=== PATIENT | female | born 1950 | race Caucasian/White ===

== ENCOUNTER 2019-11-08 07:10 | Outpatient (CLI) | payer MEDICARE, SELFPAY ==
[2019-11-08 07:51] LABS: Alanine Aminotransferase 31 U/L (4-35); Alkaline Phosphatase 78 U/L (38-126); Aspartate Amino Transferase 31 U/L (14-36); Bilirubin,Total 0.6 mg/dL (0.2-1.3); Blood Urea Nitrogen 23 mg/dL (7-17); Calcium 9.7 mg/dL (8.4-10.2); Carbon Dioxide 24 mmol/L (22-30); Chloride 101 mmol/L (98-107); Cholesterol 176 mg/dL (0-200); Estimated Glomerular Filt Rate > 60; Glucose 112 mg/dL (65-105); HDL Direct 102 mg/dL; Potassium 4.1 mmol/L (3.4-5.0); Sodium 134 mmol/L (137-145); Triglycerides 65 mg/dL (<150)
[2019-11-08 08:02] LABS: LDL Cholesterol Direct 61 mg/dL
== END 2019-11-08 07:11 | disposition home or self-care (01) ==
PROVIDERS: PCP Emergency Medicine; Visit Provider Emergency Medicine
DX: E78.2 Mixed hyperlipidemia (principal); E11.9 Type 2 diabetes mellitus without complications; E03.9 Hypothyroidism, unspecified
CPT/HCPCS: 36415; 80053; 80061; 83036; 84443

== ENCOUNTER 2020-03-15 07:08 | Outpatient (CLI) | payer MEDICARE, SELFPAY ==
[2020-03-15 08:38] LABS: Hemoglobin A1C 5.6 % (<5.7)
[2020-03-15 08:43] LABS: Alanine Aminotransferase 32 U/L (4-35); Albumin Level 4.1 g/dL (3.5-5.1); Alkaline Phosphatase 93 U/L (38-126); Aspartate Amino Transferase 35 U/L (14-36); Bilirubin,Total 0.6 mg/dL (0.2-1.3); Blood Urea Nitrogen 26 mg/dL (7-17); Calcium 9.8 mg/dL (8.4-10.2); Carbon Dioxide 29 mmol/L (22-30); Chloride 106 mmol/L (98-107); Cholesterol 172 mg/dL (0-200); Estimated Glomerular Filt Rate > 60; Glucose 106 mg/dL (65-105); HDL Direct 89 mg/dL; Potassium 4.4 mmol/L (3.4-5.0); Sodium 137 mmol/L (137-145); Triglycerides 46 mg/dL (<150)
[2020-03-15 08:53] LABS: LDL Cholesterol Direct 61 mg/dL
== END 2020-03-15 07:09 | disposition home or self-care (01) ==
PROVIDERS: PCP Emergency Medicine; Visit Provider Emergency Medicine
DX: E78.5 Hyperlipidemia, unspecified (principal); E11.9 Type 2 diabetes mellitus without complications
CPT/HCPCS: 36415; 80053; 80061; 83036

== ENCOUNTER 2020-08-15 07:13 | Outpatient (CLI) | payer MEDICARE, SELFPAY ==
[2020-08-15 09:06] LABS: Hemoglobin A1C 5.2 % (<5.7)
[2020-08-15 09:07] LABS: Alanine Aminotransferase 25 U/L (4-35); Albumin Level 3.9 g/dL (3.5-5.1); Alkaline Phosphatase 80 U/L (38-126); Anion Gap 7 mmol/L (8-16); Aspartate Amino Transferase 28 U/L (14-36); Bilirubin,Total 0.5 mg/dL (0.2-1.3); Blood Urea Nitrogen 21 mg/dL (7-17); Calcium 9.5 mg/dL (8.4-10.2); Carbon Dioxide 29 mmol/L (22-30); Chloride 103 mmol/L (98-107); Cholesterol 166 mg/dL (0-200); Estimated Glomerular Filt Rate > 60; Glucose 105 mg/dL (65-105); HDL Direct 92 mg/dL; Sodium 139 mmol/L (137-145); Triglycerides 63 mg/dL (<150)
[2020-08-15 09:18] LABS: LDL Cholesterol Direct 49 mg/dL
== END 2020-08-15 07:14 | disposition home or self-care (01) ==
LOC: ANHLAB 07:16
PROVIDERS: PCP Emergency Medicine; Visit Provider Emergency Medicine
DX: E78.5 Hyperlipidemia, unspecified (principal); E11.9 Type 2 diabetes mellitus without complications
CPT/HCPCS: 36415; 80053; 80061; 83036

== ENCOUNTER 2020-12-18 07:27 | Outpatient (CLI) | payer MEDICARE, SELFPAY ==
[2020-12-18 08:03] LABS: Alanine Aminotransferase 33 U/L (4-35); Albumin Level 3.8 g/dL (3.5-5.1); Alkaline Phosphatase 86 U/L (38-126); Anion Gap 5 mmol/L (8-16); Aspartate Amino Transferase 29 U/L (14-36); Bilirubin,Total 0.5 mg/dL (0.2-1.3); Blood Urea Nitrogen 25 mg/dL (7-17); Calcium 9.1 mg/dL (8.4-10.2); Carbon Dioxide 28 mmol/L (22-30); Chloride 107 mmol/L (98-107); Cholesterol 177 mg/dL (0-200); Estimated Glomerular Filt Rate > 60; Glucose 111 mg/dL (65-105); HDL Direct 89 mg/dL; Hemoglobin A1C 5.3 % (<5.7); Potassium 4.4 mmol/L (3.4-5.0); Sodium 140 mmol/L (137-145); Triglycerides 73 mg/dL (<150)
[2020-12-18 08:15] LABS: LDL Cholesterol Direct 55 mg/dL
[2020-12-18 08:34] LABS: Creatinine Urine 78.3 mg/dL
[2020-12-18 08:51] LABS: MALB Creatinine Ratio < 7.7 mg/g (0-30); Microalbumin Urine Random < 6.0 mg/L (0-16.7)
== END 2020-12-18 07:28 | disposition home or self-care (01) ==
PROVIDERS: PCP Emergency Medicine; Visit Provider Emergency Medicine
DX: E11.9 Type 2 diabetes mellitus without complications (principal); I10 Essential (primary) hypertension
CPT/HCPCS: 36415; 80053; 80061; 82043; 83036

== ENCOUNTER 2021-03-27 07:02 | Outpatient (CLI) | payer MEDICARE, SELFPAY ==
[2021-03-27 07:47] LABS: Alanine Aminotransferase 39 U/L (4-35); Albumin Level 4.3 g/dL (3.5-5.1); Alkaline Phosphatase 88 U/L (38-126); Anion Gap 9 mmol/L (8-16); Aspartate Amino Transferase 40 U/L (14-36); Bilirubin,Total 0.6 mg/dL (0.2-1.3); Blood Urea Nitrogen 30 mg/dL (7-17); Calcium 9.8 mg/dL (8.4-10.2); Carbon Dioxide 26 mmol/L (22-30); Chloride 104 mmol/L (98-107); Cholesterol 184 mg/dL (0-200); Estimated Glomerular Filt Rate > 60; Glucose 113 mg/dL (65-105); HDL Direct 100 mg/dL; Potassium 4.3 mmol/L (3.4-5.0); Sodium 139 mmol/L (137-145); Triglycerides 71 mg/dL (<150)
[2021-03-27 07:49] LABS: Hemoglobin A1C 5.7 % (<5.7)
[2021-03-27 07:59] LABS: LDL Cholesterol Direct 55 mg/dL
== END 2021-03-27 07:03 | disposition home or self-care (01) ==
PROVIDERS: PCP Emergency Medicine; Visit Provider Emergency Medicine
DX: E11.9 Type 2 diabetes mellitus without complications (principal); I10 Essential (primary) hypertension
CPT/HCPCS: 36415; 80053; 80061; 83036

== ENCOUNTER → 2021-04-08 17:44 | Outpatient (CLI) | payer MEDICARE, SELFPAY ==
--- NOTE | ~2021-04-08 | MM_ITS ---
EXAMINATION: MM screening jan BI w richard HISTORY: Screening TECHNIQUE: Craniocaudal and mediolateral oblique 3-D tomosynthesis images were obtained and synthetic 2-D images were generated. CAD analysis was submitted and interpreted. COMPARISON: No prior mammogram is available for comparison at this institution. BREAST PARENCHYMAL COMPOSITION: The breasts are almost entirely fatty. FINDINGS: There is no evidence of suspicious mass, calcification, or architectural distortion to sugg est malignancy in either breast. There has been no suspicious interval change. IMPRESSION: 1. No mammographic evidence of malignancy. 2. Recommend routine screening mammography in one year. BI-RADS Category 1: Negative Reviewed, dictated and finalized at location A.
--- NOTE | ~2021-04-08 | DEXA_ITS ---
Bone Density Report Name: Shabana Rendon Age: 70 Sex: Female Ethnicity: White Date of : 1950 Indication: postmenopausal; screening for osteoporosis; Referring Provider: LUIS POLANCO Study: Bone densitometry was performed. Exam Date: April 08, 2021 Accession number: [id number] Bone Density: Region BMD T-score Z-score Classification AP Spine (L1-L4) 1.158 1.0 3.2 Normal Femoral Neck (Left) 0.890 0.4 2.3 Normal Total Hip (Left) 1.121 1.5 3.1 Normal Femoral Neck (Right) 0.812 -0.3 1.6 Normal Total Hip (Right) 1.041 0.8 2.4 Normal Total Hip Mean 1.081 1.2 2.8 Normal World Health Organization criteria for BMD impression classify patients as: Normal (T-score at or above -1.0), Osteopenia (T-score between -1.0 and -2.5), or Osteoporosis (T-score at or below -2.5). 10-year Fracture Risk: FRAX not reported because: All T-scores for Spine Total, Hip Total, Femoral Neck at or above -1.0 Previous Exams: Region Exam Age BMD T-score BMD Change BMD Change Date g/cm2 vs Baseline vs Previous AP Spine(L1-L4) 04/08/2021 70 1.158 1.0 0.068* 0.072* 04/07/2018 67 1.086 0.4 -0.004 -0.004 03/25/2016 65 1.090 0.4 Total Hip(Left) 04/08/2021 70 1.121 1.5 0.078* 0.063* 04/07/2018 67 1.059 1.0 0.015 0.015 03/25/2016 65 1.043 0.8 Total Hip(Right) 04/08/2021 70 1.041 0.8 0.043* 0.055* 04/07/2018 67 0.986 0.4 -0.012 -0.012 03/25/2016 65 0.998 0.5 *Denotes significance at 95% confidence level, LSC for AP Spine = 0.022 g/cm2, LSC for Total Hip = 0.027 g/cm2 Clinical Information Provided by Patient: Has used the following medications: Vitamin D, Calcium Patient maximum height was 66.5 Menopause Age: 49 No regular weight bearing exercise Drinks caffeinated beverages Onset of menses at age 12 Number of children 2 Impression: The patient has normal bone mass. No significant bone loss was observed. Discussion: BONE DENSITY IS ABOVE THE MINIMUM DESIRABLE LEVEL AT ALL SKELETAL SITES TESTED. This patient?s bone mineral density is above the minimum desirable level (T-score -1.0 or better) at all sites measured. The patient should follow a healthful lifestyle (good nutrition with adequate calcium and vitamin D, and appropriate weight-bearing exercise). Follow-Up: Consider repeating this study in 5 years or sooner
== END ==
PROVIDERS: PCP Emergency Medicine; Visit Provider Emergency Medicine
DX: Z12.31 Encounter for screening mammogram for malignant neoplasm of breast (principal); Z78.0 Asymptomatic menopausal state
CPT/HCPCS: 77063; 77067; 77080

== ENCOUNTER 2021-10-17 07:50 | Outpatient (CLI) | payer MEDICARE, SELFPAY ==
[2021-10-17 09:22] LABS: Alanine Aminotransferase 30 U/L (4-35); Albumin Level 4.2 g/dL (3.5-5.1); Alkaline Phosphatase 93 U/L (38-126); Anion Gap 10 mmol/L (8-16); Aspartate Amino Transferase 27 U/L (14-36); Bilirubin,Total 0.6 mg/dL (0.2-1.3); Blood Urea Nitrogen 22 mg/dL (7-17); Calcium 9.8 mg/dL (8.4-10.2); Carbon Dioxide 25 mmol/L (22-30); Chloride 101 mmol/L (98-107); Cholesterol 189 mg/dL (0-200); Estimated Glomerular Filt Rate > 60; Glucose 119 mg/dL (65-110); HDL Direct 104 mg/dL; Potassium 4.2 mmol/L (3.4-5.0); Sodium 136 mmol/L (137-145); Triglycerides 82 mg/dL (<150)
[2021-10-17 09:33] LABS: LDL Cholesterol Direct 57 mg/dL
[2021-10-17 09:37] LABS: Hemoglobin A1C 5.8 % (<5.7)
== END 2021-10-17 07:51 | disposition home or self-care (01) ==
PROVIDERS: PCP Emergency Medicine; Visit Provider Emergency Medicine
DX: E11.9 Type 2 diabetes mellitus without complications (principal); I10 Essential (primary) hypertension
CPT/HCPCS: 36415; 80053; 80061; 83036

== ENCOUNTER 2022-02-18 07:10 | Outpatient (CLI) | payer MEDICARE, SELFPAY ==
[2022-02-18 07:50] LABS: Alanine Aminotransferase 33 U/L (6-35); Albumin Level 4.1 g/dL (3.5-5.1); Alkaline Phosphatase 100 U/L (38-126); Anion Gap 5 mmol/L (8-16); Aspartate Amino Transferase 32 U/L (14-36); Bilirubin,Total 0.4 mg/dL (0.2-1.3); Blood Urea Nitrogen 37 mg/dL (7-17); Calcium 9.7 mg/dL (8.4-10.2); Carbon Dioxide 27 mmol/L (22-30); Chloride 105 mmol/L (98-107); Cholesterol 179 mg/dL (0-200); Estimated Glomerular Filt Rate > 60; Glucose 118 mg/dL (65-110); HDL Direct 86 mg/dL; Potassium 4.4 mmol/L (3.4-5.0); Sodium 137 mmol/L (137-145); Triglycerides 80 mg/dL (<150)
[2022-02-18 07:59] LABS: Hemoglobin A1C 5.3 % (<5.7)
[2022-02-18 08:01] LABS: LDL Cholesterol Direct 53 mg/dL
== END 2022-02-18 07:11 | disposition home or self-care (01) ==
LOC: ANHLAB 07:13
PROVIDERS: PCP Emergency Medicine; Visit Provider Emergency Medicine
DX: E11.9 Type 2 diabetes mellitus without complications (principal); I10 Essential (primary) hypertension; Z13.220 Encounter for screening for lipoid disorders; E03.9 Hypothyroidism, unspecified
CPT/HCPCS: 36415; 80053; 80061; 83036; 84443

== ENCOUNTER 2022-04-09 10:33 | Outpatient (CLI) | payer MEDICARE, SELFPAY | END 2022-04-09 10:34 | disposition home or self-care (01) | PROVIDERS: PCP Emergency Medicine; Visit Provider Emergency Medicine | DX: E03.9 Hypothyroidism, unspecified (principal) | CPT/HCPCS: 36415; 84443 ==

== ENCOUNTER → 2022-05-27 11:04 | Outpatient (CLI) | payer MEDICARE, SELFPAY ==
--- NOTE | ~2022-05-27 | MM_ITS ---
EXAMINATION: MM screening jan BI w richard HISTORY: Screening mammogram TECHNIQUE: Craniocaudal and mediolateral oblique 3-D tomosynthesis images were obtained and synthetic 2-D images were generated. CAD analysis was submitted and interpreted. COMPARISON: 04/08/2021 bilateral screening mammogram examinations BREAST PARENCHYMAL COMPOSITION: The breasts are almost entirely fatty. FINDINGS: Stable benign small intramammary lymph node, upper outer right breast. There is no evidence of suspicious mass, calcification, or architectural distortion to suggest malignancy in either breas t. There has been no suspicious interval change. IMPRESSION: 1. No mammographic evidence of malignancy. 2. Recommend routine screening mammography in one year. BI-RADS Category 2: Benign finding(s). Reviewed, dictated and finalized at location A.
== END ==
PROVIDERS: PCP Emergency Medicine; Visit Provider Emergency Medicine
DX: Z12.31 Encounter for screening mammogram for malignant neoplasm of breast (principal)
CPT/HCPCS: 77063; 77067

== ENCOUNTER 2022-06-22 08:41 | Emergency (ER) | payer MEDICARE, SELFPAY ==
--- NOTE | 2022-06-22 08:43 | ED.SKABFB ---
HPI - Skin/Abscess/Foreign Bdy General Chief complaint: Allergic Reaction Stated complaint: INSECT BITES Time Seen by Provider: 06/22/22 08:41 Source: patient Mode of arrival: ambulatory Limitations: no limitations History of Present Illness HPI narrative: Ms. Rendon is a 72-year-old female patient presenting to the clinic today with complaints of insect bites to the back of her legs. She reports she was hiking with her grandkids yesterday and had possibly been bitten by an insect. She denies any pain to the area however it is very itchy red and blistered. Denies any fever or chills. Related Data Home Medications Medication Instructions Recorded Confirmed calcium carb-vit D3-minerals 600 1 tablet PO DAILY 11/15/19 06/22/22 mg calcium-400 unit tablet flaxseed oil 1,000 mg capsule 1,000 mg PO DAILY 11/15/19 06/22/22 levomefolate 15 mg-algal oil 1 cap PO DAILY 11/15/19 06/22/22 90.314 mg capsule (Deplin (algal oil)) Allergies Allergy/AdvReac Type Severity Reaction Status Date / Time Penicillins Allergy Mild Rash Verified 06/22/22 08:54 levofloxacin Allergy Unknown Unknown Verified 06/22/22 08:54 Sulfa (Sulfonamide Allergy Unknown Hives / Verified 06/22/22 08:54 Antibiotics) Red Face Review of Systems Review of Systems: Pertinent positives per HPI. Patient denies any fever, chills, headache, visual changes, dizziness, cough, runny nose, sore throat, shortness of breath, chest pain, palpitations, nausea, vomiting, diarrhea, constipation, abdominal pain, or any urinary issues. PMFSH Past Medical History Medical History (Updated 06/22/22 @ 09:11 by Chirag Pozo, CELLULAR PHONE REPAIRER) Depression Diabetes mellitus Comments At the time of my signature, I reviewed and agree with the nursing past medical, surgical, social, and family history. There is no relevant family history pertinent to the patient complaint. Exam Narrative: General: Well-developed, well nourished, in no apparent distress Head: Normocephalic, atraumatic. Cardio: Regular rate and rhythm, s1 and s2 normal, no murmur appreciated. Resp: Clear to auscultation bilaterally, no rhonchi, rales, wheezing or rubs. Integumentary: [place], warm, and dry, indurated area the size of a golf ball with large yellowish clear fluid-filled blister to the left lower leg, dime sized yellowish clear fluid-filled blister with indurated size of a half dollar to the right posterior calf. These areas were cleansed with technic care and a 21-gauge needle was used to create small hole for drainage. No blood was noted in fluid Course Course Emergency Course: Portions of this record may have been created with voice recognition software. Level of Care: Express Care Visit Vital Signs Vital signs: Vital Signs Temperature 36.6 C 06/22/22 08:53 Pulse Rate 85 06/22/22 08:53 Respiratory Rate 18 06/22/22 08:53 Blood Pressure 103/72 06/22/22 08:53 Pulse Oximetry 98 06/22/22 08:53 Oxygen Delivery Room Air 06/22/22 08:53 Temperature 36.6 C 06/22/22 08:55 Pulse Rate 85 06/22/22 08:55 Respiratory Rate 18 06/22/22 08:55 Blood Pressure 103/72 06/22/22 08:55 Pulse Oximetry 98 06/22/22 08:55 Oxygen Delivery Room Air 06/22/22 08:55 Vital signs reviewed MDM - Skin/Abscess/Foreign Bdy MDM Narrative Medical decision making narrative: At the time of visit patient is resting comfortably on the exam table. Blistered areas were cleansed with technic care and a 21-gauge needle was used to drain these. No sign of infection. I suspect the patient has insect bite with a localized allergic reaction. Supportive measures were discussed with the patient she voiced understanding of discharge instructions. I will send her in a prescription for some prednisone to help with the inflammation and swelling Differential Diagnosis Differential diagnosis: Likely abscess of skin or subcutaneous tissue, urticaria, herpes zoster, cellulitis, insect bites and
[2022-06-22 08:53] VITALS: BP 103/72; PULSE 85; RESP 18; TEMP 36.6; O2SAT 98
[2022-06-22 08:55] VITALS: BP 103/72; PULSE 85; RESP 18; TEMP 36.6; O2SAT 98
== END 2022-06-22 09:24 | disposition home or self-care (01) ==
PROVIDERS: Emergency Provider Nurse Practitioner Family; PCP Emergency Medicine
DX: S80.862A Insect bite (nonvenomous), left lower leg, initial encounter (principal); S80.861A Insect bite (nonvenomous), right lower leg, initial encounter; W57.XXXA Bitten or stung by nonvenomous insect and other nonvenomous arthropods, initial encounter; E11.9 Type 2 diabetes mellitus without complications
CPT/HCPCS: 99213; G0463

== ENCOUNTER 2022-06-25 07:21 | Outpatient (CLI) | payer MEDICARE, SELFPAY ==
[2022-06-25 08:33] LABS: Alanine Aminotransferase 49 U/L (6-35); Albumin Level 4.2 g/dL (3.5-5.1); Alkaline Phosphatase 74 U/L (38-126); Anion Gap 12 mmol/L (8-16); Aspartate Amino Transferase 30 U/L (14-36); Bilirubin,Total 0.5 mg/dL (0.2-1.3); Blood Urea Nitrogen 34 mg/dL (7-17); Calcium 9.2 mg/dL (8.4-10.2); Carbon Dioxide 25 mmol/L (22-30); Chloride 101 mmol/L (98-107); Cholesterol 170 mg/dL (0-200); Estimated Glomerular Filt Rate > 60; Glucose 106 mg/dL (65-110); HDL Direct 95 mg/dL; Potassium 3.8 mmol/L (3.4-5.0); Sodium 138 mmol/L (137-145); Triglycerides 46 mg/dL (<150)
[2022-06-25 08:44] LABS: LDL Cholesterol Direct 49 mg/dL
[2022-06-25 11:59] LABS: Hemoglobin A1C 5.3 % (<5.7)
== END 2022-06-25 07:22 | disposition home or self-care (01) ==
LOC: ANHLAB 07:25
PROVIDERS: PCP Emergency Medicine; Visit Provider Emergency Medicine
DX: E78.5 Hyperlipidemia, unspecified (principal); I10 Essential (primary) hypertension; E11.9 Type 2 diabetes mellitus without complications; E03.9 Hypothyroidism, unspecified
CPT/HCPCS: 36415; 80053; 80061; 83036; 84443

== ENCOUNTER 2022-11-13 07:53 | Outpatient (CLI) | payer MEDICARE, SELFPAY ==
[2022-11-13 08:27] LABS: Alanine Aminotransferase 33 U/L (6-35); Alkaline Phosphatase 96 U/L (38-126); Anion Gap 6 mmol/L (8-16); Aspartate Amino Transferase 36 U/L (14-36); Bilirubin,Total 0.5 mg/dL (0.2-1.3); Blood Urea Nitrogen 24 mg/dL (7-17); Calcium 8.9 mg/dL (8.4-10.2); Carbon Dioxide 27 mmol/L (22-30); Chloride 107 mmol/L (98-107); Cholesterol 173 mg/dL (0-200); Estimated Glomerular Filt Rate > 60; Glucose 108 mg/dL (65-110); HDL Direct 91 mg/dL; Potassium 4.2 mmol/L (3.4-5.0); Sodium 140 mmol/L (137-145); Triglycerides 69 mg/dL (<150)
[2022-11-13 08:38] LABS: LDL Cholesterol Direct 49 mg/dL
[2022-11-13 08:45] LABS: Hemoglobin A1C 5.2 % (<5.7)
== END 2022-11-13 07:54 | disposition home or self-care (01) ==
PROVIDERS: PCP Emergency Medicine; Visit Provider Emergency Medicine
DX: E11.9 Type 2 diabetes mellitus without complications (principal); E78.5 Hyperlipidemia, unspecified
CPT/HCPCS: 36415; 80053; 80061; 83036; 84443

== ENCOUNTER 2022-12-01 01:07 | Day surgery (SDC) | payer MEDICARE, SELFPAY ==
[2022-11-23 10:02] VITALS: BMI 32.7
--- NOTE | 2022-11-30 15:29 | P.PNAN_ITS ---
Anes - Initial Pre Proc Eval Procedure: Operation Date: 12/01/22 08:00 Proposed Procedures p Screening Colonoscopy - Eddie Gavin MD Date/Time: 11/30/22 15:29 Surgeon: Eddie Gavin MD Pre Op Diagnosis: neoplasm screening Patient Data Age: 72 Gender: F Height: 1.68 m Weight: 92 kg Allergies Allergy/AdvReac Type Severity Reaction Status Date / Time Penicillins Allergy Mild Rash Verified 12/01/22 06:41 levofloxacin Allergy Unknown Unknown Verified 12/01/22 06:41 Sulfa (Sulfonamide Allergy Unknown Hives / Verified 12/01/22 06:41 Antibiotics) Red Face Home Medications Medication Instructions Recorded Confirmed Type calcium carb-vit D3-minerals 600 1 tablet PO DAILY 11/15/19 12/01/22 History mg calcium-400 unit tablet flaxseed oil 1,000 mg capsule 1,000 mg PO DAILY 11/15/19 12/01/22 History levomefolate 15 mg-algal oil 1 cap PO DAILY 11/15/19 12/01/22 History 90.314 mg capsule (Deplin (algal oil)) atorvastatin 10 mg tablet 10 mg PO DAILY #90 tabs 05/15/22 12/01/22 Rx lisinopril 20 See Rx Instructions .Route 05/15/22 12/01/22 Rx mg-hydrochlorothiazide 12.5 mg .COMPLEX #90 tabs tablet levothyroxine 75 mcg tablet See Rx Instructions .Route 11/03/22 12/01/22 Rx .COMPLEX #90 tabs Patient hx anesthesia problems: none Family hx anesthesia problems: none Results Review: All pre-operative results and documents have been reviewed as part of the pre- operative evaluation. [facility] Past Medical History Medical History (Updated 11/30/22 @ 15:30 by Alex Mike DO) Depression Diabetes mellitus Essential (primary) hypertension HLD (hyperlipidemia) Hypothyroidism (acquired) Pulmonary nodules Social History Social History Smoking status: Never smoker Alcohol intake: current Drinks per week: 7 Spiritual care concerns: No Anes - Eval Final PreProcedure Day of Procedure 11/30/22 15:29 Patient weight: obese Heart: regular rate and rhythm Lungs: clear to auscultation Airway: Mallampati scale class II Neurological: alert and oriented Last oral intake: >/= 8 hours ASA classification: III Emergent: no Anesthetic plan: proceed Anesthesia type and monitoring: general GIVS and standard monitoring Results Review: All pre-operative results and documents have been reviewed as part of the pre-operative evaluation. Informed Consent: The patient's anesthetic plan and its attendant risks and benefits were discussed with the patient/family/POA. Questions were solicited and answers provided to the satisfaction of the patient/family/POA.
[2022-12-01 06:43] VITALS: BP 120/73; PULSE 77; RESP 16; TEMP 36.3; O2SAT 98
[2022-12-01] MEDS: LACTATED RINGERS 1,000 ML 150 ML IV CONT (06:46)
--- NOTE | 2022-12-01 07:27 | P.HP_ITS ---
History of Present Illness History of Present Illness Consent: Risks, benefits, and alternatives have been discussed and questions answered. Patient agrees to proceed with procedure. Chief complaint: neoplasm screening Narrative: Shabana Rendon is a 72 year old female Presents for screening colonoscopy. Patient's family history is significant patient's mother had colon cancer. Patient had previous colonoscopy 5 years ago that was unremarkable. Patient states that her current weight appetite bowel movements are normal. Review of Systems Review of Systems: Review of systems noncontributory. [facility] Past Medical History Medical History (Updated 12/01/22 @ 07:29 by Eddie Gavin MD) Depression Diabetes mellitus Essential (primary) hypertension HLD (hyperlipidemia) Hypothyroidism (acquired) Pulmonary nodules Social History Social History Smoking status: Never smoker Alcohol intake: current Drinks per week: 7 Spiritual care concerns: No Meds Home Medications and Allergies Home Medications Medication Instructions Recorded Confirmed Type calcium carb-vit D3-minerals 600 1 tablet PO DAILY 11/15/19 12/01/22 History mg calcium-400 unit tablet flaxseed oil 1,000 mg capsule 1,000 mg PO DAILY 11/15/19 12/01/22 History levomefolate 15 mg-algal oil 1 cap PO DAILY 11/15/19 12/01/22 History 90.314 mg capsule (Deplin (algal oil)) atorvastatin 10 mg tablet 10 mg PO DAILY #90 tabs 05/15/22 12/01/22 Rx lisinopril 20 See Rx Instructions .Route 05/15/22 12/01/22 Rx mg-hydrochlorothiazide 12.5 mg .COMPLEX #90 tabs tablet levothyroxine 75 mcg tablet See Rx Instructions .Route 11/03/22 12/01/22 Rx .COMPLEX #90 tabs Allergies Allergy/AdvReac Type Severity Reaction Status Date / Time Penicillins Allergy Mild Rash Verified 12/01/22 06:41 levofloxacin Allergy Unknown Unknown Verified 12/01/22 06:41 Sulfa (Sulfonamide Allergy Unknown Hives / Verified 12/01/22 06:41 Antibiotics) Red Face Vital Signs Vital Signs - 24 hr 12/01/22 06:43 Temperature 97.3 F L Pulse Rate 77 Respiratory Rate 16 Blood Pressure 120/73 Pulse Oximetry 98 Oxygen Delivery Room Air Exam Narrative: Physical exam reveals patient to be alert. Vital signs stable. HEENT exam is unremarkable. Patient is anicteric. Lungs are clear to auscultation and percussion. Heart is without murmur or extra sounds. Abdomen bowel sounds are present soft nontender with no organomegaly. Digital external rectal exam is normal. Assessment and Plan Assessment and plan (1) Family history of colon cancer in mother: Code(s): Z80.0 - Family history of malignant neoplasm of digestive organs Status: Acute Assessment and Plan: Patient's mother has had colon cancer. Plan for surveillance colonoscopy at 5 year intervals. Further recommendations may be given after endoscopy.
[2022-12-01 08:21] VITALS: BP 94/55; PULSE 66; RESP 21; O2SAT 97
[2022-12-01 08:31] VITALS: BP 110/63; PULSE 55; RESP 19; O2SAT 100
[2022-12-01 08:41] VITALS: BP 115/70; PULSE 56; RESP 16; O2SAT 99
== END 2022-12-01 08:50 | disposition home or self-care (01) ==
PROVIDERS: PCP Emergency Medicine; Visit Provider Internal Medicine Gastroenterology
PROC: 0DJD8ZZ Inspection of Lower Intestinal Tract, Via Natural or Artificial Opening Endoscopic (ICD-10-PCS; CPT 45378; principal; 2022-12-01 08:00)
DX: Z12.11 Encounter for screening for malignant neoplasm of colon (principal); Z80.0 Family history of malignant neoplasm of digestive organs; E11.9 Type 2 diabetes mellitus without complications; I10 Essential (primary) hypertension; E78.5 Hyperlipidemia, unspecified; E03.9 Hypothyroidism, unspecified; F32.A Depression, unspecified; E66.9 Obesity, unspecified; Z68.34 Body mass index [BMI] 34.0-34.9, adult
CPT/HCPCS: G0105; J2704; J7120

== ENCOUNTER 2023-02-19 08:40 | Emergency (ER) | payer MEDICARE, SELFPAY ==
--- NOTE | 2023-02-19 08:42 | ED.URI ---
HPI - URI/Sore Throat General Chief Complaint: Upper Respiratory Infection Stated Complaint: SORE THROAT/CONGESITON Time Seen by Provider: 02/19/23 08:42 Source: patient Mode of arrival: ambulatory Limitations: no limitations History of Present Illness HPI Narrative: Patient is a 72-year-old female who presents with cough since Wednesday evening. Patient states her cough worsened last night and took Tylenol. Patient states she has allergies but does not take daily allergy medicine. Has not tried any other [id number] medicine. Denies fever, chills, ear pain, congestion, sore throat. Related Data Home Medications Medication Instructions Recorded Confirmed calcium carb-vit D3-minerals 600 1 tablet PO DAILY 11/15/19 02/19/23 mg calcium-400 unit tablet flaxseed oil 1,000 mg capsule 1,000 mg PO DAILY 11/15/19 02/19/23 levomefolate 15 mg-algal oil 1 cap PO DAILY 11/15/19 02/19/23 90.314 mg capsule (Deplin (algal oil)) Allergies Allergy/AdvReac Type Severity Reaction Status Date / Time Penicillins Allergy Mild Rash Verified 02/19/23 08:50 levofloxacin Allergy Unknown Unknown Verified 02/19/23 08:50 Sulfa (Sulfonamide Allergy Unknown Hives / Verified 02/19/23 08:50 Antibiotics) Red Face Review of Systems Review of Systems: All systems reviewed & are unremarkable except as noted in HPI and below Constitutional: Constitutional: Denies body ache(s), Denies chills, Denies fatigue, Denies fever(s), Denies headache(s), Denies malaise and Denies weakness Eyes: Eyes: Denies blurry vision, Denies itchy eyes and Denies loss of vision ENT: Denies otalgia, Denies headache(s), Denies nasal congestion, Denies sinus pain and Denies sore throat Cardiovascular: Cardiovascular: Denies chest pain, Denies irregular heart rhythm and Denies dyspnea Respiratory: Respiratory: Reports cough and Denies dyspnea Gastrointestinal: Gastrointestinal: Denies abdominal pain, Denies diarrhea, Denies nausea and Denies vomiting Musculoskeletal: Musculoskeletal: Denies back pain, Denies myalgias and Denies arthralgias Integumentary/Breasts: Skin/Breast: Denies pruritus and Denies rash Neurologic: Denies headache(s), Denies loss of vision and Denies weakness Psychiatric: Psychiatric: Reports no additional psychiatric complaints Endocrine: Endocrine: Denies fatigue Allergic/Immunologic: Allergic/Immunologic: Denies itchy eyes PMFSH Past Medical History Medical History (Updated 02/19/23 @ 09:05 by Dolly Loera APRN) Depression Diabetes mellitus Essential (primary) hypertension HLD (hyperlipidemia) Hypothyroidism (acquired) Pulmonary nodules Social History Social History Smoking status: Never smoker Alcohol intake: current Drinks per week: 7 Spiritual care concerns: No Comments At time of signature, agree with nursing past medical, surgical, social and family history. There is no relevant family history pertinent to the presenting complaint. Exam Const: General: cooperative, healthy appearing, comfortable, no acute distress and well nourished Nutritional Appearance: well nourished Orientation/consciousness: patient oriented x3 Limitations: no limitations HENMT: Head: normal to inspection, normocephalic and atraumatic Ears: hearing grossly normal bilaterally, external ears normal, TM's normal bilaterally, EAC's normal and no periauricular adenopathy Face/Nose/Sinus: Normal external nose present, Normal nasal mucous membranes and turbinates present, No nasal discharge present, normal facial exam, sinuses nontender and face symmetric Face and sinus: normal facial exam, sinuses nontender and face symmetric Mouth: Yes Normal oral and palatal mucosa present, Yes lip normal, Yes tongue normal, Yes Normal salivary glands and ducts present, Yes oropharynx normal and Yes moist mucous membranes Teeth and gingiva: dentition normal Throat: posterior oropharynx normal
[2023-02-19 08:49] VITALS: BP 122/73; PULSE 73; RESP 16; TEMP 36.3; O2SAT 96
[2023-02-19 08:51] VITALS: BP 122/73; PULSE 73; RESP 16; TEMP 36.3; O2SAT 96
== END 2023-02-19 09:09 | disposition home or self-care (01) ==
PROVIDERS: Emergency Provider Nurse Practitioner Family; PCP Emergency Medicine
DX: J06.9 Acute upper respiratory infection, unspecified (principal); E11.9 Type 2 diabetes mellitus without complications; I10 Essential (primary) hypertension; E78.5 Hyperlipidemia, unspecified; E03.9 Hypothyroidism, unspecified
CPT/HCPCS: 99213; G0463

== ENCOUNTER 2023-03-12 07:29 | Outpatient (CLI) | payer MEDICARE, SELFPAY ==
[2023-03-12 09:56] LABS: Alanine Aminotransferase 89 U/L (6-35); Alkaline Phosphatase 150 U/L (38-126); Anion Gap 6 mmol/L (8-16); Aspartate Amino Transferase 50 U/L (14-36); Bilirubin,Total 0.5 mg/dL (0.2-1.3); Blood Urea Nitrogen 31 mg/dL (7-17); Calcium 9.1 mg/dL (8.4-10.2); Carbon Dioxide 28 mmol/L (22-30); Chloride 104 mmol/L (98-107); Cholesterol 171 mg/dL (0-200); Estimated Glomerular Filt Rate > 60; Glucose 111 mg/dL (65-110); HDL Direct 84 mg/dL; Sodium 138 mmol/L (137-145); Triglycerides 76 mg/dL (<150)
[2023-03-12 10:16] LABS: LDL Cholesterol Direct 60 mg/dL
== END 2023-03-12 07:30 | disposition home or self-care (01) ==
LOC: ANHLAB 07:31
PROVIDERS: PCP Emergency Medicine; Visit Provider Emergency Medicine
DX: E11.9 Type 2 diabetes mellitus without complications (principal)
CPT/HCPCS: 36415; 80053; 80061; 84443

== ENCOUNTER 2023-08-06 07:22 | Outpatient (CLI) | payer MEDICARE, SELFPAY ==
[2023-08-06 09:00] LABS: Alanine Aminotransferase 23 U/L (6-35); Albumin Level 4.2 g/dL (3.5-5.1); Alkaline Phosphatase 86 U/L (38-126); Anion Gap 6 mmol/L (8-16); Aspartate Amino Transferase 24 U/L (14-36); Bilirubin,Total 0.6 mg/dL (0.2-1.3); Blood Urea Nitrogen 24 mg/dL (7-17); Calcium 9.4 mg/dL (8.4-10.2); Carbon Dioxide 27 mmol/L (22-30); Chloride 104 mmol/L (98-107); Cholesterol 185 mg/dL (0-200); Estimated Glomerular Filt Rate > 60; Glucose 106 mg/dL (65-110); HDL Direct 104 mg/dL; Potassium 4.1 mmol/L (3.4-5.0); Sodium 137 mmol/L (137-145); Triglycerides 60 mg/dL (<150)
[2023-08-06 09:10] LABS: LDL Cholesterol Direct 61 mg/dL
[2023-08-06 10:12] LABS: Hemoglobin A1C 5.3 % (<5.7)
[2023-08-10 11:02] LABS: Vitamin D 1,25 (OH)2 Total 23 pg/mL (18-72); Vitamin D2 1,25 (OH)2 <8 pg/mL; Vitamin D3 1,25 (OH)2 23 pg/mL
== END 2023-08-06 07:23 | disposition home or self-care (01) ==
PROVIDERS: PCP Emergency Medicine; Visit Provider Emergency Medicine
DX: E11.9 Type 2 diabetes mellitus without complications (principal); E78.5 Hyperlipidemia, unspecified; E55.9 Vitamin D deficiency, unspecified
CPT/HCPCS: 36415; 80053; 80061; 82652; 83036

== ENCOUNTER → 2023-08-11 10:20 | Outpatient (CLI) | payer MEDICARE, SELFPAY ==
--- NOTE | ~2023-08-11 | MM_ITS ---
EXAMINATION: MM screening [facility] BI w richard HISTORY: Screening mammogram TECHNIQUE: Craniocaudal and mediolateral oblique 3-D tomosynthesis images were obtained and synthetic 2-D images were generated. CAD analysis was submitted and interpreted. COMPARISON: 05/27/2022, 04/08/2021 BREAST PARENCHYMAL COMPOSITION: There are scattered areas of fibroglandular density. FINDINGS: No suspicious mass, calcification, or architectural distortion are identified in either tammy ast to suggest malignancy. There has been no suspicious interval change. IMPRESSION: 1. No mammographic evidence of malignancy. 2. Recommend routine screening mammography in one year. BI-RADS Category 1: Negative Reviewed, dictated and finalized at location A.
== END ==
PROVIDERS: PCP Emergency Medicine; Visit Provider Emergency Medicine
DX: Z12.31 Encounter for screening mammogram for malignant neoplasm of breast (principal)
CPT/HCPCS: 77063; 77067

== ENCOUNTER 2023-09-29 17:18 | Outpatient (CLI) | payer MEDICARE, SELFPAY ==
[2023-09-29 18:06] LABS: Appearance Urine Turbid (Clear); Bacteria Urine 4+ /hpf; Bilirubin Urine Negative (Negative); Blood Urine Trace (Negative); Color Urine Yellow (Yellow); Glucose Urine UA Negative (Negative); Ketones Urine Negative (Negative); Leukocyte Esterase Ur 3+ LEU/UL (Negative); Nitrate Urine Positive (Negative); Non Pathogenic Casts 0-2; Protein Urine Negative (Negative); Specific Grav Ur 1.023 (1.001-1.035); Squamous Epithelial Cell Urine Few /hpf (Few); Urobilinogen Urine 0.2 mg/dL (<2.0); WBC Urine >100 /hpf; pH Urine 5.5 (5.0-9.0)
[2023-09-29 18:08] LABS: Add Urine Microscopic? YES
== END 2023-09-29 17:19 | disposition home or self-care (01) ==
PROVIDERS: PCP Emergency Medicine; Visit Provider Emergency Medicine
DX: N39.0 Urinary tract infection, site not specified (principal)
CPT/HCPCS: 81001; 87077; 87086; 87186

== ENCOUNTER 2023-12-29 07:44 | Outpatient (CLI) | payer MEDICARE, SELFPAY ==
[2023-12-29 08:45] LABS: Alanine Aminotransferase 32 U/L (6-35); Albumin Level 3.9 g/dL (3.5-5.1); Alkaline Phosphatase 86 U/L (38-126); Anion Gap 3 mmol/L (8-16); Aspartate Amino Transferase 28 U/L (14-36); Bilirubin,Total 0.7 mg/dL (0.2-1.3); Blood Urea Nitrogen 25 mg/dL (7-17); Calcium 9.6 mg/dL (8.4-10.2); Carbon Dioxide 28 mmol/L (22-30); Chloride 107 mmol/L (98-107); Cholesterol 179 mg/dL (0-200); Estimated Glomerular Filt Rate > 60; Glucose 106 mg/dL (65-110); HDL Direct 96 mg/dL; Potassium 4.1 mmol/L (3.4-5.0); Sodium 138 mmol/L (137-145); Triglycerides 85 mg/dL (<150)
[2023-12-29 08:55] LABS: LDL Cholesterol Direct 68 mg/dL
[2023-12-29 09:04] LABS: Vitamin D 25 Hydroxy 56.5 ng/mL
== END 2023-12-29 07:45 | disposition home or self-care (01) ==
LOC: ANHLAB 07:46
PROVIDERS: PCP Emergency Medicine; Visit Provider Emergency Medicine
DX: E55.9 Vitamin D deficiency, unspecified (principal); I10 Essential (primary) hypertension
CPT/HCPCS: 36415; 80053; 80061; 82306; 84443

== ENCOUNTER 2024-02-10 13:13 | Outpatient (CLI) | payer MEDICARE, SELFPAY ==
--- NOTE | ~2024-02-10 | DEXA_ITS ---
Bone Density Report Name: CHAVA CRAIG Age: 73 Sex: Female Ethnicity: White Date of : 1950 Indication: postmenopausal; screening for osteoporosis; Referring Provider: LUIS POLANCO Study: Bone densitometry was performed. Exam Date: February 10, 2024 Accession number: [id number] Bone Density: Region BMD T-score Z-score Classification AP Spine (L1-L4) 1.202 1.4 3.8 Normal Femoral Neck (Left) 0.875 0.2 2.3 Normal Total Hip (Left) 1.115 1.4 3.2 Normal Femoral Neck (Right) 0.781 -0.6 1.5 Normal Total Hip (Right) 1.043 0.8 2.6 Normal Total Hip Mean 1.079 1.1 2.9 Normal World Health Organization criteria for BMD impression classify patients as: Normal (T-score at or above -1.0), Osteopenia (T-score between -1.0 and -2.5), or Osteoporosis (T-score at or below -2.5). 10-year Fracture Risk: FRAX not reported because: All T-scores for Spine Total, Hip Total, Femoral Neck at or above -1.0 Previous Exams: Region Exam Age BMD T-score BMD Change BMD Change Date g/cm2 vs Baseline vs Previous AP Spine(L1-L4) 02/10/2024 73 1.202 1.4 0.112 0.044 04/08/2021 70 1.158 1.0 0.068* 0.072* 04/07/2018 67 1.086 0.4 -0.004 -0.004 03/25/2016 65 1.090 0.4 Total Hip(Left) 02/10/2024 73 1.115 1.4 0.072 -0.006 04/08/2021 70 1.121 1.5 0.078* 0.063* 04/07/2018 67 1.059 1.0 0.015 0.015 03/25/2016 65 1.043 0.8 Total Hip(Right) 02/10/2024 73 1.043 0.8 0.045 0.002 04/08/2021 70 1.041 0.8 0.043* 0.055* 04/07/2018 67 0.986 0.4 -0.012 -0.012 03/25/2016 65 0.998 0.5 *Denotes significance at 95% confidence level, LSC for AP Spine = 0.022 g/cm2, LSC for Total Hip = 0.027 g/cm2 Clinical Information Provided by Patient: Has used the following medications: Calcium Patient maximum height was 66 Menopause Age: 49 No regular weight bearing exercise Drinks caffeinated beverages Onset of menses at age 12 Number of children 2 Impression: The patient has normal bone mass. No significant bone loss was observed. Discussion: BONE DENSITY IS ABOVE THE MINIMUM DESIRABLE LEVEL AT ALL SKELETAL SITES TESTED. This patient?s bone mineral density is above the minimum desirable level (T-score -1.0 or better) at all sites measured. The patient should follow a
== END 2024-02-10 13:14 ==
LOC: MICIMG 13:14
PROVIDERS: PCP Emergency Medicine; Visit Provider Emergency Medicine
DX: Z78.0 Asymptomatic menopausal state (principal)
CPT/HCPCS: 77080

== ENCOUNTER 2024-05-23 09:15 | Outpatient (CLI) | payer MEDICARE, SELFPAY ==
[2024-05-23 09:49] LABS: Alanine Aminotransferase 35 U/L (6-35); Albumin Level 4.1 g/dL (3.5-5.1); Alkaline Phosphatase 99 U/L (38-126); Anion Gap 9 mmol/L (4-12); Aspartate Amino Transferase 29 U/L (14-36); Bilirubin,Total 0.7 mg/dL (0.2-1.3); Blood Urea Nitrogen 31 mg/dL (7-17); Calcium 9.7 mg/dL (8.4-10.2); Carbon Dioxide 25 mmol/L (22-30); Chloride 104 mmol/L (98-107); Cholesterol 174 mg/dL (0-200); Estimated Glomerular Filt Rate > 60; Glucose 114 mg/dL (65-110); HDL Direct 98 mg/dL; Potassium 4.3 mmol/L (3.4-5.0); Sodium 138 mmol/L (137-145); Triglycerides 72 mg/dL (<150)
[2024-05-23 10:00] LABS: LDL Cholesterol Direct 58 mg/dL
[2024-05-23 10:36] LABS: Vitamin D 25 Hydroxy 39.3 ng/mL
[2024-05-23 10:48] LABS: Hemoglobin A1C 5.7 % (<5.7)
== END 2024-05-23 09:16 | disposition home or self-care (01) ==
LOC: ANHLAB 09:20
PROVIDERS: PCP Emergency Medicine; Visit Provider Emergency Medicine
DX: E78.5 Hyperlipidemia, unspecified (principal); E03.9 Hypothyroidism, unspecified; E11.9 Type 2 diabetes mellitus without complications; E55.9 Vitamin D deficiency, unspecified
CPT/HCPCS: 36415; 80053; 80061; 82306; 83036; 84443

== ENCOUNTER 2024-11-24 08:18 | Outpatient (CLI) | payer MEDICARE, SELFPAY ==
--- OUTSIDE RECORDS SUMMARY | 2024-11-24 08:22 | XMS_ITS | Patient Health Summary ---
Author Organization [facility] Address [address] [place] [address] Care Team Providers Care Health Information Administrator Name Role Phone Agustin Montgomery MD Primary Care Provider [phone] Note from [facility],non-owned Affiliates and Associated Physician Practices is amultiple site organization consisting of ambulatory clinics and hospital sitesin [place], [place], [place]. This disclosure is being madepursuant to the Care Everywhere program and may not contain all information available regarding this patient. Last updated 18.[facility] Allergies * Penicillins * Sulfa Drugs Immunizations * INFLUENZA VACCINE, HIGH-DOSE, QUADR. (FLUZONE HIGH-DOSE QUADRIVALENT; 65Y+), 0.7 ML (HD-IIV4)(Given 08/24/2017) Social History Tobacco Use Types Packs/Day Years Used Date Smoking Tobacco: Never Assessed Sex and Gender Information Value Date Recorded Sex Assigned at Not on file Gender Identity Not on file Sexual Orientation Not on file Care Teams Health Information Administrator Relationship Specialty Start Date End Date Agustin Montgomery MD [address] [place] [id number] PCP - General Internal Medicine 08/24/17
--- OUTSIDE RECORDS SUMMARY | 2024-11-24 08:22 | XMS_ITS | Referral Summary ---
Author Organization [facility] Address [address] [place] [address] Care Team Providers Care Global Sales Director Name Role Phone Agustin Montgomery MD Primary Care Provider [phone] Source Comments [facility],non-owned Affiliates and Associated Physician Practices is amultiple site organization consisting of ambulatory clinics and hospital sitesin [place], [place], [place] and [place]. This disclosure is being madepursuant to the Care Everywhere program and may not contain all information available regarding this patient. Last updated 18.[facility] [employer] Allergies Active Allergy Reactions Criticality Noted Date Comments Penicillins 08/24/2017 Sulfa Drugs 08/24/2017 Immunizations Name Administration Dates Next Due INFLUENZA VACCINE, HIGH-DOSE , QUADR. (FLUZONE HIGH-DOSE QUADRIVALENT; 65Y+), 0.7 ML (HD-IIV4) 08/24/2017 Social History Tobacco Use Types Packs/Day Years Used Date Smoking Tobacco: Never Assessed Sex and Gender Information Value Date Recorded Sex Assigned at Not on file Gender Identity Not on file Sexual Orientation Not on file Plan of Treatment Not on file Care Teams Global Sales Director Relationship Specialty Start Date End Date Agustin Montgomery MD [facility] [facility] [address] [place] [address] PCP - General Internal Medicine 08/24/17
--- OUTSIDE RECORDS SUMMARY | 2024-11-24 08:22 | XMS_ITS | Clinical Summary ---
Author Organization [facility] Address [address] [place] [address] Care Team Providers Care Rehabilitation Therapist Name Role Phone None, Provider Primary Care Provider Unavaila ble Social History Tobacco Use Types Packs/Day Years Used Date Smoking Tobacco: Never Assessed Comments Unknown Sex and Gender Information Value Date Recorded Sex Assigned at Not on file Legal Sex Female 8:51 PM CDT Gender Identity Not on file Sexual Orientation Not on file Plan of Treatment Health Maintenance Due Date Last Done Comments Colorectal Cancer Screening Colonoscopy (10 Years) 1949 Hepatitis C 1967 DTaP, Tdap and Td Vaccines ( 1 - Tdap) 1968 Zoster Vaccines (1 of 2) 1999 Annual Medicare Wellness Visit 2014 Dexa Scan (General) 2014 Pneumococcal Vaccine: 65+ Ye ars (1 of 1 - PCV) 2014 RSV Immunization or 60+ Years (1 - 1-dose 75+ series) 2024 COVID-19 Vaccine ( - 2023-2 5 season) 2024 Influenza Adult (#1) 2024 08/24/2017 Meningococcal B Vaccine Aged Out No l onger eligible based on patient's age to complete this topic Meningococcal Vaccine Aged Out No didier caryn eligible based on patient's age to complete this topic RSV Immunizations Under 20 Months Aged Out No longer eligible based on patient's age to complete this topic Insurance MEDICARE [facility] Care Teams Rehabilitation Therapist Relationship Specialty Start Date End Date None, Provider, PCP - General 11/08/18
--- OUTSIDE RECORDS SUMMARY | 2024-11-24 08:22 | XMS_ITS | Clinical Summary ---
Author Organization [facility] Address [address] Attn: Epic Prelude ADT [place] [address] Care Team Providers Care Kitchen And Counter Worker Name Role Phone Unavailable Primary Care Provider Unavailabl e Allergies Active Allergy Reactions Criticality Noted Date Comments Sulfamethoxazole-Trimethoprim Hives High 2023 Medications bacitracin zinc 500 unit/gram Ointment Apply to the affected area three times daily 14 Gram 2 Active peg 3350-electroly velvet (GaviLyte-G) 236-22.74-6.74 -5.86 gram Recon Soln TAKE DIRECTED BY PHYSICIAN. 4000 mL 11/21/2022 12:40 PM INTERNAL CONTROLS CONSULTANT 3 Active inhalational spacing device ([facility]) Spacer use as directed with inhaler 1 Each 02/19/2023 10:45 AM CDT 3 Active albuterol sulfate HFA 90 mcg/actuation aerosol inhaler 2 puff inhaled four times daily as needed for shortness of breath or wheezing 6.7 Gram 02/19/2023 10:45 AM CDT 3 Active predniSONE (DELTASONE) 20 mg tablet Take two tablets (40 mg) orally daily for 5 days 10 Tablet 02/19/2023 10:45 AM CDT 3 Active azithromycin (ZITHROMAX) 250 mg tablet Take 2 tablets by mouth on day 1, then take 1 tablet by mouth daily for 4 days. 6 Tablet 03/12/2023 1:27 PM CDT 3 Active fluticasone propionate (FLONASE) 50 mcg/spray [place], Suspension nasal inhaler Administer 2 sprays in each nostril once daily. 16 Gram 3 07/14/2023 9:27 AM CDT 3 Active methylPREDNISo lone (MEDROL DOSPACK) 4 mg Tablets, Dose Pack TAKE DIRECTED ON PACKAGE. 21 Each 03/17/2023 6:43 PM CDT 3 Active azithromycin (ZITHROMAX) 250 mg tablet TAKE 2 TABLETS BY MOUTH A SINGLE DOSE ON DAY 1, THEN TAKE 1 TABLET BY MOUTH ONCE DAILY ON DAYS 2 THRU 5. 6 Tablet 11/30/2023 2:03 PM INTERNAL CONTROLS CONSULTANT 4 Active methylPREDNISo lone (MEDROL DOSPACK) 4 mg Tablets, Dose Pack TAKE DIRECTED ON PACKAGE. 21 Each 11/30/2023 2:03 PM INTERNAL CONTROLS CONSULTANT 4 Active atorvastatin (LIPITOR) 10 mg tablet Take 1 Tablet (10 mg) by mouth daily. 90 Tablet 2 11/01/2024 2:03 PM INTERNAL CONTROLS CONSULTANT 4 Active levothyroxine 75 mcg tablet Take 1 Tablet (75 mcg) by mouth daily. 90 Tablet 2 11/08/2024 11:48 AM INTERNAL CONTROLS CONSULTANT 4 Active bacitracin zinc 500 unit/gram Ointment Apply topically three times daily. 14 Gram 2 4 Active lisinopril-hyd roCHLOROthiazi de (ZESTORETIC) 20-12.5 mg tablet TAKE ONE TABLET BY MOUTH ONCE DAILY 90 Tablet 2 11/08/2024 11:48 AM INTERNAL CONTROLS CONSULTANT 5 Active lisinopril-hyd roCHLOROthiazi de (ZESTORETIC) 20-12.5 mg tablet TAKE ONE TABLET BY MOUTH ONCE DAILY 90 Tablet 2 08/09/2024 11:31 AM CDT 4 11/07/19 25 Discontinu ed(Reorder ) Immunizations Immunization Administration Dates Next Due (ADACEL/BOOSTRIX)(10 YR UP) TDAP VACCINE, 0.5ML, IM 07/01/2022 (AREXVY)(60 YR UP) RSV, UMER MBINANT, PROTEIN SUBUNIT RSVPREF, ADJUVANT RECONSTITUTED, 0.5 ML, PF 10/28/2023 INFLUENZA VACCINE HIGH DOSE QUADRIVALENT 65 YR U P PF IM 06/21/2023 INFLUENZA VACCINE HIGH DOSE TRIVALENT SPLIT VIRUS, (65 YR UP), 0.5ML (PF), IM 08/01/2024 Social History Tobacco Use Types Packs/Day Years Used Date Smoking Tobacco: Never Assessed Comments Unknown Sex and Gender Information Value Date Recorded Sex Assigned at Not on file Legal Sex Female 3:27 PM CDT Gender Identity Not on file Sexual Orientation Not on file Plan of Treatment Health Maintenance Due Date Last Done Comments COLORECTAL SCREENING 1994 Colorectal Cancer Screening 1994 FIT-DNA Q 3 years 1994 FIT/FOBT Q 1 year 1994 Flex Sig/CT Colonography Q 5 years 1994 PNEUMOCOCCAL VACCINE 65+ YEA RS (1 of 1 - PCV) 1999 ZOSTER VACCINE (1 of 2) 1999 OSTEOPOROSIS SCREENING 2014 DTAP/TDAP/TD VACCINES (2 - Td or Tdap) 07/01/2032 RSV VACCINE (60+ or ) Completed 10/28/2023 INFLUENZA VACCINE Completed 08/01/2024, 06/21/2023 Insurance RX [facility] DATA Medicare Part B RX [employer] (INTERNAL) [facility] RX [employer] RX Member Subscriber Plan / Payer (Ef fective for All Dates) Name:Chava Craig Relation to Subscriber:Self Name:Chava Craig Payer ID:Not on file Group ID:[id number] Type:RX [facility] Address: [place] [place]
--- OUTSIDE RECORDS SUMMARY | 2024-11-24 08:22 | XMS_ITS | Clinical Summary ---
Author Organization [facility] Address [address] [place] [address] Care Team Providers Care Shirt Finisher Name Role Phone Agustin Montgomery MD Primary Care Provider [phone] Source Comments [facility],non-owned Affiliates and Associated Physician Practices is amultiple site organization consisting of ambulatory clinics and hospital sitesin [place], [place], [place] and [place]. This disclosure is being madepursuant to the Care Everywhere program and may not contain all information available regarding this patient. Last updated 18.[facility] [employer] Allergies Active Allergy Reactions Criticality Noted Date [...] Health Maintenance Due Date Last Done Comments BONE DENSITY TESTING 1950 COLOGUARD (AGES 45-75) - COL ON CA SCREENING 1949 COLON MONITORING 1949 COLONOSCOPY - COLON CA SCREENING 1949 CT COLONOGRAPHY - COLON CA SCREENING 1949 Colorectal Cancer Screening 1949 FIT - COLON CA SCREENING 1949 FLEX SIG - COLON CA SCREENING 1949 LIPID TESTING 1949 MAMMOGRAM 1949 MEDICARE AWV 12 MONTHS 1949 HEPATITIS C SCREENING 04/16/1967 DTAP/TDAP/TD VACCINES (1 - Tdap) 1968 PNEUMOCOCCAL VACCINE 50+ (1 of 1 - PCV) 1999 ZOSTER VACCINE (1 of 2) 1999 Respiratory Syncytial Virus (RSV) Vaccine Pt: or over 60 yrs (1 - 1-dose 75+ series) 2024 COVID-19 VACCINE (1 - 2023-2 5 season) 2024 INFLUENZA VACCINE (#1) 2024 08/24/2017 DEPRESSION SCREENING 10/11/2024 HEPATITIS B VACCINE Aged Out No longe r eligible based on patient's age to complete this topic HIB VACCINE Aged Out No longer eligi ble based on patient's age to complete this topic HPV VACCINE Aged Out No longer eligi ble based on patient's age to complete this topic MENINGOCOCCAL (Group B) VACCINE Aged Out No longer eligible based on patient's age to complete this topic MENINGOCOCCAL VACCINE Aged Out No didier caryn eligible based on patient's age to complete this topic Care Teams Shirt Finisher Relationship Specialty Start Date End Date Agustin Montgomery MD [address] [place] [address] [address] [place] [address] PCP - General Internal Medicine 08/24/17
[2024-11-24 09:08] LABS: Alanine Aminotransferase 34 U/L (6-35); Albumin Level 4.1 g/dL (3.5-5.1); Alkaline Phosphatase 95 U/L (38-126); Anion Gap 7 mmol/L (4-12); Aspartate Amino Transferase 24 U/L (14-36); Bilirubin,Total 0.8 mg/dL (0.2-1.3); Blood Urea Nitrogen 25 mg/dL (7-17); Calcium 9.4 mg/dL (8.4-10.2); Carbon Dioxide 26 mmol/L (22-30); Chloride 105 mmol/L (98-107); Cholesterol 185 mg/dL (0-200); Estimated Glomerular Filt Rate > 60; Glucose 111 mg/dL (65-110); HDL Direct 105 mg/dL; Potassium 4.4 mmol/L (3.4-5.0); Sodium 138 mmol/L (137-145); Triglycerides 72 mg/dL (<150)
[2024-11-24 09:19] LABS: Creatinine Urine 52.9 mg/dL
[2024-11-24 09:19] LABS: LDL Cholesterol Direct 59 mg/dL
[2024-11-24 09:38] LABS: Vitamin D 25 Hydroxy 44.2 ng/mL
[2024-11-24 09:39] LABS: MALB Creatinine Ratio < 11.3 mg/g (0-30); Microalbumin Urine Random < 6.0 mg/L (0-16.7)
== END 2024-11-24 08:19 | disposition home or self-care (01) ==
LOC: ANHLAB 08:19
PROVIDERS: PCP Emergency Medicine; Visit Provider Emergency Medicine
DX: E78.5 Hyperlipidemia, unspecified (principal); E55.9 Vitamin D deficiency, unspecified; E11.9 Type 2 diabetes mellitus without complications
CPT/HCPCS: 36415; 80053; 80061; 82043; 82306; 84443

== ENCOUNTER 2025-01-28 12:49 | Inpatient (IN) | payer MEDICARE, SELFPAY ==
--- NOTE | ~2025-01-28 | CT_ITS ---
EXAMINATION: CT abdomen pelvis w con DATE: 01/28/2025 14:56 INDICATION: RLQ pain TECHNIQUE: Computed tomography (CT) of the abdomen and pelvis was performed with 100 mL Omnipaque-350 intravenous contrast. Automated exposure control and iterative reconstruction technique were employe d. The dose-length product was 865.32 mGy-cm. COMPARISON: 06/10/2012. FINDINGS: Lower thorax: Bibasilar scar/atelectasis. Liver: Normal. Biliary/Gallbladder: Gallbladder is normal. No bile duct dilation. Pancreas: No mass or duct dilation. Spleen: Normal. Adrenals:No mass. Kidneys: No suspicious mass, obstructing stone, or hydronephrosis. GI tract: Small hiatal hernia. Mild distal esophageal and gastric wall edema. No small or large bowel dilation. Dilated appendix, appendicolith at the neck, patchy wall enhancement, severe surrounding i nflammatory change and trace fluid, no free air or abscess. There is inflammation of adjacent small b owel loops, and the traversing right ureter and right gonadal vein Mesentery/Peritoneum: No ascites, mass, or free air. Retroperitoneum: No mass. Pelvis: Pelvic organs are within normal limits. Small urachal remnant. Soft Tissues: Soft tissues and body wall unremarkable. Bones: No acute osseous finding. IMPRESSION: Mild esophagitis/gastritis. Severe acute appendicitis, with evidence of appendiceal wall breakdown. No current evidence of perfor ation or abscess. Reviewed, dictated and finalized at location K. IMPRESSION: Mild esophagitis/gastritis. Severe acute appendicitis, with evidence of appendiceal wall breakdown. No curr ent evidence of perforation or abscess.
--- OUTSIDE RECORDS SUMMARY | 2025-01-28 12:51 | XMS_ITS | Clinical Summary ---
Author Organization [facility] Address [address] [place] [address] Care Team Providers Care Gis Coordinator Name Role Phone None, Provider Primary Care [...] Td Vaccines ( 1 - Tdap) 1968 Pneumococcal Vaccine: 50+ Ye ars (1 of 1 - PCV) 1999 Zoster Vaccines (1 of 2) 1999 Annual Medicare Wellness Visit 2014 Dexa Scan (General) 2014 RSV Immunization or 60+ Years (1 - 1-dose 75+ series) 2024 COVID-19 Vaccine ( - 2023-2 5 season) 2024 Meningococcal B Vaccine Aged Out No l onger eligible based on patient's age to complete this topic Meningococcal Vaccine Aged Out No didier caryn eligible based on patient's age to complete this topic RSV Immunizations Under 20 Months Aged Out No longer eligible based on patient's age to complete this topic Insurance [facility]ICARE [facility] Care Teams Gis Coordinator Relationship Specialty Start Date End Date None, Provider, PCP - General 11/08/18
--- OUTSIDE RECORDS SUMMARY | 2025-01-28 12:52 | XMS_ITS | Clinical Summary ---
Author Organization [facility] Address [address] Attn: Epic Prelude ADT [place] [address] Care Team Providers Care Wrapper Dipper Name Role Phone Unavailable Primary Care Provider Unavailabl e Allergies Active Allergy Reactions Criticality Noted Date Comments Sulfamethoxazole-Trimethoprim Hives High 2023 Medications bacitracin zinc 500 unit/gram Ointment Apply to the affected area three times daily 14 Gram 2 Active peg 3350-electrolyt es (GaviLyte-G) 236-22.74-6.74 -5.86 gram Recon Soln TAKE DIRECTED BY PHYSICIAN. 4000 mL 11/21/2022 12:40 PM CASE MANAGEMENT SPECIALIST 3 Active inhalational spacing device ([facility]) Spacer use as directed with inhaler 1 [...] 3 Active fluticasone propionate (FLONASE) 50 mcg/spray [place], Suspension nasal inhaler Administer 2 sprays in each nostril once daily. 16 Gram 3 07/14/2023 9:27 AM CDT 3 Active methylPREDNISol one (MEDROL DOSPACK) 4 mg Tablets, Dose Pack TAKE DIRECTED ON PACKAGE. 21 Each 03/17/2023 6:43 PM CDT 3 Active azithromycin (ZITHROMAX) 250 mg tablet TAKE 2 TABLETS BY MOUTH A SINGLE DOSE ON DAY 1, THEN TAKE 1 TABLET BY MOUTH ONCE DAILY ON DAYS 2 THRU 5. 6 Tablet 11/30/2023 2:03 PM CASE MANAGEMENT SPECIALIST 4 Active methylPREDNISol one (MEDROL DOSPACK) 4 mg Tablets, Dose Pack TAKE DIRECTED ON PACKAGE. 21 Each 11/30/2023 2:03 PM CASE MANAGEMENT SPECIALIST 4 Active atorvastatin (LIPITOR) 10 mg tablet Take 1 Tablet (10 mg) by mouth daily. 90 Tablet 2 11/01/2024 2:03 PM CASE MANAGEMENT SPECIALIST 4 Active levothyroxine 75 mcg tablet Take 1 Tablet (75 mcg) by mouth daily. 90 Tablet 2 11/08/2024 11:48 AM CASE MANAGEMENT SPECIALIST 4 Active bacitracin zinc 500 unit/gram Ointment Apply topically three times daily. 14 Gram 2 4 Active lisinopril-hydr oCHLOROthiazide (ZESTORETIC) 20-12.5 mg tablet TAKE ONE TABLET BY MOUTH ONCE DAILY 90 Tablet 2 11/08/2024 11:48 AM CASE MANAGEMENT SPECIALIST 5 Active Immunizations Immunization Administration Dates Next Due (ADACEL/BOOSTRIX)(10 [...] Colonography Q 5 years 1994 PNEUMOCOCCAL VACCINE 50+ YEA RS (1 of 1 - PCV) 1999 ZOSTER VACCINE (1 of 2) 1999 OSTEOPOROSIS SCREENING 2014 DTAP/TDAP/TD VACCINES (2 - Td or Tdap) 07/01/2032 RSV VACCINE (60+ or ) Completed 10/28/2023 INFLUENZA VACCINE Completed 08/01/2024, 06/21/2023 Insurance RX [facility] DATA Medicare Part B RX [employer] (INTERNAL) [facility] RX [employer] RX Member Subscriber Plan / Payer (Ef fective for All Dates) Name:Chava Craig Relation to Subscriber:Self Name:Chava Craig Payer ID:Not on file Group ID:[id number] Type:RX Commercial Address: [place] [place]
--- OUTSIDE RECORDS SUMMARY | 2025-01-28 12:52 | XMS_ITS | Clinical Summary ---
Author Organization [facility] Address [address] [place] [address] Care Team Providers Care Lsw Name Role Phone Agustin Montgomery MD Primary Care Provider [phone] Source Comments [facility],non-owned Affiliates and Associated Physician Practices is amultiple site organization consisting of ambulatory clinics and hospital sitesin [place], [place], [place] and [place]. This disclosure is being madepursuant to the Care Everywhere program and may not contain all information available regarding this patient. Last updated 18.[facility] [employer] Allergies Active Allergy Reactions Criticality Noted Date Comments Penicillins 08/24/2017 Sulfa Drugs 08/24/2017 Immunizations Immunization Administration Dates Next Due INFLUENZA VACCINE, HIGH-DOSE , QUADR. (FLUZONE HIGH-DOSE QUADRIVALENT; 65Y+), 0.7 ML (HD-IIV4) 08/24/2017 Social History Tobacco Use Types Packs/Day Years Used Date Smoking Tobacco: Never Assessed Comments Unknown Sex and Gender Information Value Date Recorded Sex Assigned at Not on file Legal Sex Female 2:40 PM TRESTLEMAN Gender Identity Not on file Sexual Orientation [...] VACCINE (1 - 2023-2 5 season) 2024 DEPRESSION SCREENING 10/11/2024 INFLUENZA VACCINE (Season Ended) 2025 08/24/20 17 HEPATITIS B VACCINE Aged Out No longe r eligible based on patient's age to complete this topic HIB VACCINE Aged Out No longer eligi ble based on patient's age to complete this topic HPV VACCINE Aged Out No longer eligi ble based on patient's age to complete this topic MENINGOCOCCAL (Group B) VACC INE SHARED DECISION-MAKING Aged Out No longer eligibl e based on patient's age to complete this topic MENINGOCOCCAL GROUPS A/C/Y/W VACCINE Aged Out No longer eligible b ased on patient's age to complete this topic Insurance MEDICARE [facility] Care Teams Lsw Relationship Specialty Start Date End Date Agustin Montgomery MD [facility] [facility] [address] [place] [phone] PCP - General Internal Medicine 08/24/17
[2025-01-28 12:54] VITALS: BP 139/75; PULSE 88; RESP 16; TEMP 36.4; O2SAT 97
--- OUTSIDE RECORDS SUMMARY | 2025-01-28 13:49 | XMS_ITS | Clinical Summary ---
Author Organization [facility] Address [address] Attn: Epic Prelude ADT [place] [address] Care Team Providers Care Turkish Line Attendant Name Role Phone Unavailable Primary Care Provider Unavailabl e Allergies Active Allergy Reactions Criticality Noted Date Comments Sulfamethoxazole-Trimethoprim Hives High 2023 Medications bacitracin zinc 500 unit/gram Ointment Apply to the affected area three times daily 14 Gram 2 Active peg 3350-electrolyt es (GaviLyte-G) 236-22.74-6.74 -5.86 gram Recon Soln TAKE DIRECTED BY PHYSICIAN. 4000 mL 11/21/2022 12:40 PM STUDY HALL SUPERVISOR 3 Active inhalational spacing device ([facility]) Spacer use as directed with inhaler [...] 3 Active fluticasone propionate (FLONASE) 50 mcg/spray [place], Suspension nasal inhaler Administer 2 sprays in [...] THRU 5. 6 Tablet 11/30/2023 2:03 PM STUDY HALL SUPERVISOR 4 Active methylPREDNISol one (MEDROL DOSPACK) 4 mg Tablets, Dose Pack TAKE DIRECTED ON PACKAGE. 21 Each 11/30/2023 2:03 PM STUDY HALL SUPERVISOR 4 Active atorvastatin (LIPITOR) 10 mg tablet Take 1 Tablet (10 mg) by mouth daily. 90 Tablet 2 11/01/2024 2:03 PM STUDY HALL SUPERVISOR 4 Active levothyroxine 75 mcg tablet Take 1 Tablet (75 mcg) by mouth daily. 90 Tablet 2 11/08/2024 11:48 AM STUDY HALL SUPERVISOR 4 Active bacitracin zinc 500 unit/gram Ointment Apply topically three times daily. 14 Gram 2 4 Active lisinopril-hydr oCHLOROthiazide (ZESTORETIC) 20-12.5 mg tablet TAKE ONE TABLET BY MOUTH ONCE DAILY 90 Tablet 2 11/08/2024 11:48 AM STUDY HALL SUPERVISOR 5 Active Immunizations Immunization Administration Dates Next [...] INFLUENZA VACCINE Completed 08/01/2024, 06/21/2023 Insurance RX [facility] DATA Medicare Part B RX [employer] PL[employer] (INTERNAL) [facility] RX [employer] RX Member Subscriber Plan / Payer (Ef fective for All Dates) Name:Chava Craig Relation to Subscriber:Self Name:Chava Craig Payer ID:Not on file Group ID:[id number] Type:RX Commercial Address: [place] [place]
--- OUTSIDE RECORDS SUMMARY | 2025-01-28 13:49 | XMS_ITS | Clinical Summary ---
Author Organization [facility] Address [address] [place] [id number] Care Team Providers Care Mainframe Analyst Name Role Phone None, Provider Primary Care [...] age to complete this topic Insurance MEDICARE [facility] Care Teams Mainframe Analyst Relationship Specialty Start Date End Date None, Provider, PCP - General 11/08/18
--- OUTSIDE RECORDS SUMMARY | 2025-01-28 13:49 | XMS_ITS | Clinical Summary ---
Author Organization [facility] Address [address] [place] [address] Care Team Providers Care Cigar Head Stringer Name Role Phone Agustin Montgomery MD Primary Care Provider [phone] Source Comments [facility],non-owned Affiliates and Associated Physician Practices is amultiple site organization consisting of ambulatory clinics and hospital sitesin [place], [place], [place] and [place]. This disclosure is being madepursuant to the Care Everywhere program and may not contain all information available regarding this patient. Last updated 18.[facility] [employer] Allergies Active Allergy Reactions Criticality Noted Date [...] on file Legal Sex Female 2:40 PM VERSE WRITER Gender Identity Not on file Sexual Orientation [...] age to complete this topic Insurance MEDICARE [facility] Care Teams Cigar Head Stringer Relationship Specialty Start Date End Date Agustin Montgomery MD [facility] [facility] [address] [place] [phone] PCP - General Internal Medicine 08/24/17
[2025-01-28 13:56] LABS: Basophils Percent Auto 0.2 % (0.2-1.2); Eosinophils Absolute Auto 0.1 K/mm3 (0-0.3); Eosinophils Percent Auto 1.3 % (0-4.4); Hematocrit 40.7 % (37.0-47.0); Hemoglobin 13.3 g/dL (12.0-15.0); Immature Granulocyte Absolute 0.02 K/mm3 (0.00-0.031); Immature Granulocyte Percent A 0.2 % (0-0.5); Lymphocytes Absolute Auto 1.62 K/mm3 (0.9-3.2); Lymphocytes Percent Auto 16.9 % (18.3-44.2); Mean Corpuscular HGB Conc 32.7 g/dl (32-36); Mean Corpuscular Hemoglobin 32.9 pg (26-34); Mean Corpuscular Volume 100.7 fl (80-100); Monocytes Percent Auto 10.1 % (2.6-8.5); Neutrophils Absolute Auto 6.8 K/mm3 (1.3-6.7); Neutrophils Percent Auto 71.3 % (45.5-73.1); Platelet Count Result 160 k/mm3 (150-375); Red Blood Count 4.04 M/mm3 (4.2-5.4); Red Cell Distribution Width 12.4 % (11.5-14.5); White Blood Count 9.6 K/mm3 (4.5-10.0)
[2025-01-28 14:02] LABS: Add Urine Microscopic? YES; Appearance Urine Clear (Clear); Bacteria Urine Rare /hpf; Bilirubin Urine Negative (Negative); Blood Urine Negative (Negative); Color Urine Dark Yellow (Yellow); Glucose Urine UA Negative (Negative); Ketones Urine Trace mg/dL (Negative); Leukocyte Esterase Ur 2+ LEU/UL (Negative); Nitrate Urine Negative (Negative); Non Pathogenic Casts 0-2; Protein Urine 1+ mg/dL (Negative); RBC Urine 0-2 /hpf (0-2); Specific Grav Ur 1.024 (1.001-1.035); Squamous Epithelial Cell Urine Few /hpf (Few)
[2025-01-28 14:20] LABS: Alanine Aminotransferase 173 U/L (6-35); Albumin Level 3.8 g/dL (3.5-5.1); Alkaline Phosphatase 192 U/L (38-126); Anion Gap 12 mmol/L (4-12); Aspartate Amino Transferase 118 U/L (14-36); Bilirubin,Total 1.4 mg/dL (0.2-1.3); Blood Urea Nitrogen 29 mg/dL (7-17); Calcium 9.6 mg/dL (8.4-10.2); Carbon Dioxide 22 mmol/L (22-30); Chloride 104 mmol/L (98-107); Estimated CRCL calculation 75 ml/min; Estimated Glomerular Filt Rate > 60; Glucose 114 mg/dL (65-110); Lipase 30 U/L (23-300); Potassium 4.1 mmol/L (3.4-5.0); Sodium 138 mmol/L (137-145)
--- NOTE | 2025-01-28 14:25 | ED_ITS ---
HPI - Abdominal Pain General Chief Complaint: Abdominal Pain Stated Complaint: abd pain Time Seen by Provider: 01/28/25 13:39 History of Present Illness HPI narrative: Patient hadn't been feeling well last few days then today started feeling pain in the RLQ, with poor appetite. Has not thrown up. Concerned about appendicitis. Related Data Home Medications ?Medication ?Instructions ?Recorded ?Confirmed ?Last Taken ?Type calcium 600 mg (as carbonate)-vit 1 tablet PO DAILY 11/15/19 11/28/24 Unknown History D3 10 mcg (400 unit)-minerals tablet flaxseed oil 1,000 mg capsule 1,000 mg PO DAILY 11/15/19 11/28/24 Unknown History loratadine 10 mg tablet (Claritin) 10 mg PO DAILY 01/04/24 11/28/24 Unknown History cranberry 500 mg capsule 500 mg PO DAILY 05/30/24 11/28/24 Unknown History Allergies Allergy/AdvReac Type Severity Reaction Status Date / Time Penicillins Allergy Mild Rash Verified 01/28/25 15:16 Sulfa (Sulfonamide Allergy Unknown Hives / Verified 01/28/25 15:16 Antibiotics) Red Face Review of Systems 2 Review of Systems: All systems reviewed & are unremarkable except as noted in HPI and below PMFSH Past Medical History Medical History Sinusitis UTI (urinary tract infection) Dysuria Cellulitis Insect bite HLD (hyperlipidemia) Hypothyroidism (acquired) Essential (primary) hypertension Pulmonary nodules Depression Diabetes mellitus Social History Social History (Updated 11/28/24 @ 11:37 by Kimberlyn Figueroa MA) Smoking status: Never smoker Alcohol intake: current Drinks per week: 7 Alcohol use details: glass of wine daily Substance use: never Substance use type: does not use Do You Feel Safe in your Home?: Yes Lack of Transportation: No Lack of Food: Never True Current Housing: I Have Housing Concerned About Future Housing: No Difficulty Paying Gas/Electric Bills: No Difficulty Paying for Meds: No Currently Unemployed: No Education: Bachelor's Degree Difficulty w/ Childcare or Family Care: No Spiritual care concerns: No Exam 2 Narrative: EXAMINATION OF ORGAN SYSTEMS/BODY AREAS: Constitutional: Vital signs per nursing GENERAL:[No acute distress, non-toxic appearing.] HEAD: Normal with no signs of head trauma. EYES: EOMI, conjunctiva normal ENT: Hearing grossly intact LUNGS: Nonlabored breathing. HEART: [Regular rate and rhythm] ABD: [Soft], tender to palpation to the right upper quadrant and right lower quadrant EXT: Normal range of motion SKIN: [No rashes or lesions.] NEURO: [Alert and oriented x 3. No gross focal sensory or strength deficits.] PSYCH: Normal affect Course Vital Signs Vital signs: Vital Signs Temperature 97.6 F 01/28/25 12:54 Pulse Rate 88 01/28/25 12:54 Respiratory Rate 16 01/28/25 12:54 Blood Pressure 139/75 01/28/25 12:54 Pulse Oximetry 97 01/28/25 12:54 Temperature 97.6 F 01/28/25 12:54 Pulse Rate 88 01/28/25 12:54 Respiratory Rate 16 01/28/25 12:54 Blood Pressure 139/75 01/28/25 12:54 Pulse Oximetry 97 01/28/25 12:54 MDM - Abdominal Pain MDM Narrative Medical decision making narrative: Electronic medical record was reviewed. Patient presented to the ED with complaint of [abdominal pain and loss of appetite]. Vitals [were within acceptable limits]. Physical exam revealed right- sided abdominal tenderness. Based on the patient's history and physical exam, my differential includes but is not limited to [gastroenteritis, cholecystitis, appendicitis, diverticulitis]. [IV access was established by nursing staff. Patient was given morphine]. CBC, BMP, lipase, LFTs, bilirubin and alk phos were obtained. Labs were pertinent for elevated LFTs and alk-phos. [Decision was made to obtain a CT- abdomen to evaluate for acute abdominal process. CT-abdomen per radiology interpretation shows acute appendicitis, not perforated. Discussed with general surgeon, hospitalist for admission. Patient updated on plan on re-evaluation she still has significant pain so I did additionally order Dilaudid. Lab Data 01/28/25 13:50 01/28/25 13:50 Labs: Lab Results 01/28/25 01/28/25 Range/Units 13:50 14:29 WBC 9.6 (4.5-10.0) K/mm3 RBC 4.04 L (4.2-5.4) M/mm3 Hgb 13.3 (12.0-15.0) g/dL Hct 40.7 (37.0-47.0) % MCV 100.7 H (80-100) fl MCH 32.9 (26-34) pg MCHC 32.7 (32-36) g/dl RDW 12.4 (11.5-14.5) % Plt Count 160 (150-375) k/mm3 MPV 10.0 (7.4-10.4) fl Immature Gran % (Auto) 0.2 (0-0.5) % Neut % (Auto) 71.3 (45.5-73.1) % Lymph % (Auto) 16.9 L (18.3-44.2) % [place] % (Auto) 10.1 H (2.6-8.5) % Eos % (Auto) 1.3 (0-4.4) % Baso % (Auto) 0.2 (0.2-1.2) % Lymph # (Auto) 1.62 (0.9-3.2) K/mm3 [place] # (Auto) 1.0 H (0.1-0.6) K/mm3 Eos # (Auto) 0.1 (0-0.3) K/mm3 Baso # (Auto) 0.0 (0.0-0.1) K/mm3 Abs Immat Gran (auto) 0.02 (0.00-0.031) K/mm3 Absolute Neuts (auto) 6.8 H (1.3-6.7) K/mm3 Absolute Nucleated RBC 0.000 (0.0-0.012) K/mm3 Nucleated RBC % 0.0 (0.0-0.2) % Sodium 138 (137-145) mmol/L Potassium 4.1 (3.4-5.0) mmol/L Chloride 104 (98-107) mmol/L Carbon Dioxide 22 (22-30) mmol/L Anion Gap 12 (4-12) mmol/L BUN 29 H (7-17) mg/dL Creatinine 0.64 L (0.7-1.0) mg/dL Estim Creat Clear Calc 75 ml/min Estimated GFR > 60 (59 - ) Glucose 114 H (65-110) mg/dL Calcium 9.6 (8.4-10.2) mg/dL Total Bilirubin 1.4 H (0.2-1.3) mg/dL AST 118 H (14-36) U/L ALT 173 H (6-35) U/L Alkaline Phosphatase 192 H (38-126) U/L Total Protein 6.0 L (6.3-8.2) g/dL Albumin 3.8 (3.5-5.1) g/dL Lipase 30 (23-300) U/L Urine Color Dark yellow (Yellow) Urine Appearance Clear (Clear) Urine pH 6.0 (5.0-9.0) Ur Specific [place] 1.024 (1.001-1.035) Urine Protein 1+ H (Negative) mg/dL Urine Glucose (UA) Negative (Negative) mg/dL Urine Ketones Trace H (Negative) mg/dL Ur Blood (Man) Negative (Negative) Urine Nitrate Negative (Negative) Urine Bilirubin Negative (Negative) Urine Urobilinogen 1.0 (<2.0) mg/dL Leukocyte Esterase Rfl 2+ H (Negative) ALEXEI/UL Urine RBC 0-2 (0-2) /hpf Urine WBC 11-20 H (0-3) /hpf Ur Squamous Epith Cells Few (Few) /hpf Urine Bacteria Rare /hpf Urine Casts 0-2 Influenza A (RT-PCR) Negative (Negative) Influenza B (RT-PCR) Negative (Negative) RSV (RT-PCR) Negative (Negative) SARS-CoV-2 RNA (RT-PCR) Negative (Negative) Imaging Data Radiologist's impression: ITS Impressions Abdomen/Pelvis CT 01/28/25 15:02 IMPRESSION: Mild esophagitis/gastritis. Severe acute appendicitis, with evidence of appendiceal wall breakdown. No current evidence of perforation or abscess. Discharge Plan Discharge Clinical Impression: Acute appendicitis Patient Disposition: Still a Patient Condition: Serious Patient Language: Luxembourgish Prescriptions: No Action albuterol sulfate 90 mcg/actuation HFA aerosol inhaler 2 puff inhalation QID PRN (Reason: shortness of breath or wheezing) Qty: 6.7 0RF loratadine [Claritin] 10 mg tablet 10 mg PO DAILY calcium carbonate-vit D3-min 600 mg calcium- 400 unit tablet 1 tablet PO DAILY flaxseed oil 1,000 mg capsule 1,000 mg PO DAILY Rx Instructions: administer with a meal cranberry 500 mg capsule 500 mg PO DAILY Rx Instructions: administer with meals atorvastatin 10 mg tablet See Rx Instructions .ROUTE .COMPLEX Qty: 90 2RF Dose Instruction: Take 1 Tablet (10 mg) by mouth daily. Rx Instructions: Take 1 Tablet (10 mg) by mouth daily. levothyroxine 75 mcg tablet See Rx Instructions .ROUTE .COMPLEX Qty: 90 2RF Dose Instruction: Take 1 Tablet (75 mcg) by mouth daily. Rx Instructions: Take 1 Tablet (75 mcg) by mouth daily. levomefolate-algal oil [Deplin (algal oil)] 15-90.314 mg capsule See Rx Instructions .ROUTE .COMPLEX Qty: 90 2RF Dose Instruction: TAKE 1 CAPSULE BY MOUTH DAILY Rx Instructions: TAKE 1 CAPSULE BY MOUTH DAILY lisinopril-hydrochlorothiazide 20-12.5 mg tablet See Rx Instructions .ROUTE .COMPLEX Qty: 90 2RF Dose Instruction: TAKE ONE TABLET BY MOUTH ONCE DAILY Rx Instructions: TAKE ONE TABLET BY MOUTH ONCE DAILY Follow-up/Referrals: Agustin Montgomery MD [Primary Care Provider] -
[2025-01-28] MEDS: MORPHINE SULFATE (*CRX) 4 MG/ML INJ IV PUSH (14:31)
[2025-01-28 15:10] LABS: Influenza A QL RT-PCR Negative (Negative); Influenza B QL RT-PCR Negative (Negative); RSV RNA, RT-PCR Negative (Negative); SARS-CoV-2 RNA PCR Negative (Negative)
[2025-01-28 15:21] VITALS: BP 149/80; PULSE 72; RESP 18; O2SAT 100
[2025-01-28] MEDS: HYDROmorphone HCL INJ (*CRX) 2 MG/ML VIAL 1 MG IV PUSH (15:26)
[2025-01-28] MEDS: cefTRIAXone 2 GM/NS 100 ML 2 GM/100 ML BAG IVPB (15:27)
--- NOTE | 2025-01-28 15:27 | P.HP_ITS ---
H&P: HPI History of Present Illness Date/Time: 01/28/25 15:27 Chief Complaint: Acute abdominal pain Narrative: 74-year-old female past medical history hypertension, pulmonary nodules hypothyroidism hyperlipidemia and diabetes presents the hospital with acute abdominal pain. Patient states that she started having abdominal pain on . She thought it was could she had had a bowel movement so she took ale e MiraLax. Wednesday and Wednesday she had normal bowel movements however the pain continued so she presented to the hospital. Patient denies nausea or vomiting. She states the pain is on the right side of her abdomen worse with movement or palpation. Better with pain medication and rest. Her lab work shows total bilirubin of 1.4, AST of 118, ALT of 173, alkaline phos of 192, UA shows dark urine with 2+ leukocyte esterase wbc's 11-20, and negative for nitrates. CT abdomen pelvis shows mild gastritis with Severe acute appendicitis, with evidence of appendiceal wall breakdown. No current evidence of perforation or abscess. Surgery has been consulted and plan for OR in the morning. Patient is NPO. Review of Systems Review of Systems: 12 systems were reviewed and are negativ e except for as per HPI. [facility] Past Medical History Medical History (Updated 01/28/25 @ 15:42 by Milady Erickson, ALEXIA) UTI (urinary tract infection) Diabetes mellitus Sinusitis Dysuria Cellulitis Insect bite HLD (hyperlipidemia) Hypothyroidism (acquired) Essential (primary) hypertension Pulmonary nodules Depression Social History Social History (Updated 11/28/24 @ 11:37 by Kimberlyn Figueroa MA) Smoking status: Never smoker Alcohol intake: current Drinks per week: 7 Alcohol use details: glass of wine daily Substance use: never Substance use type: does not use Do You Feel Safe in your Home?: Yes Lack of Transportation: No Lack of Food: Never True Current Housing: I Have Housing Concerned About Future Housing: No Difficulty Paying Gas/Electric Bills: No Difficulty Paying for Meds: No Currently Unemployed: No Education: Bachelor's Degree Difficulty w/ Childcare or Family Care: No Spiritual care concerns: No Meds Home Medications and Allergies Home Medications ?Medication ?Instructions ?Recorded ?Confirmed ?Type calcium 600 mg (as carbonate)-vit 1 tablet PO DAILY 11/15/19 01/28/25 History D3 10 mcg (400 unit)-minerals tablet flaxseed oil 1,000 mg capsule 1,000 mg PO DAILY 11/15/19 01/28/25 History loratadine 10 mg tablet (Claritin) 10 mg PO DAILY 01/04/24 01/28/25 History atorvastatin 10 mg tablet See Rx Instructions .Route 05/08/24 01/28/25 Rx .COMPLEX #90 tabs levothyroxine 75 mcg tablet See Rx Instructions .Route 05/10/24 01/28/25 Rx .COMPLEX #90 tabs cranberry 500 mg capsule 500 mg PO DAILY 05/30/24 01/28/25 History levomefolate 15 mg-algal oil See Rx Instructions .Route 08/09/24 01/28/25 Rx 90.314 mg capsule (Deplin (algal .COMPLEX #90 caps oil)) lisinopril 20 See Rx Instructions .Route 11/07/24 01/28/25 Rx mg-hydrochlorothiazide 12.5 mg .COMPLEX #90 tabs tablet Allergies Allergy/AdvReac Type Severity Reaction Status Date / Time Penicillins Allergy Mild Rash Verified 01/28/25 15:16 Sulfa (Sulfonamide Allergy Unknown Hives / Verified 01/28/25 15:16 Antibiotics) Red Face Vital Signs Vital Signs - 24 hr 01/28/25 12:54 01/28/25 15:21 Temperature 97.6 F Pulse Rate 88 72 Respiratory Rate 16 18 Blood Pressure 139/75 149/80 H Pulse Oximetry 97 100 Exam Narrative: General: well appearing, appears stated age. HEENT: normocephalic, atraumatic. Mucous membranes moist. EOMI, PERRLA, bilateral sclera anicteric, no conjunctival injection. Neck supple without JVD, lymphadenopathy, or bruit. Respiratory: clear to ascultation bilaterally. No rales/rhonic/wheezes. Cardiovascular: Regular rate and rhythm, normal S1-S2 upon ascultation. No murmurs, rubs, or clicks. PMI is nondisplaced, capillary refill less than 3 second. Abdomen: Soft, round, no pulsatile masses, nondistended . No rebound, no guarding. No CVA tenderness, no hepatosplenomegaly. Tender to palpation. Bowel sounds present to all four quadrants. No high pitch or tinkling sounds, resonant to percussion. Extremities: No cyanosis, clubbing, or edema present. Pulses are palpable 2/2. Active ROM to all four extremities. Neuro: Alert and orientated x 4. PERRLA. Cranial nerves 2-12 intact without focal deficit. Skin: Warm, dry, and intact, without rash, erythema, or lesion. Psych: pleasant, cooperative, normal speech, normal affect, no hallucinations, no dysarthia H&P: Results Labs Labs: Short CBC 01/28/25 Range/Units 13:50 WBC 9.6 (4.5-10.0) K/mm3 Hgb 13.3 (12.0-15.0) g/dL Hct 40.7 (37.0-47.0) % Plt Count 160 (150-375) k/mm3 BMP 01/28/25 13:50 Sodium 138 Potassium 4.1 Chloride 104 Carbon Dioxide 22 BUN 29 H Creatinine 0.64 L Glucose 114 H Calcium 9.6 Liver Function 01/28/25 Range/Units 13:50 Total Bilirubin 1.4 H (0.2-1.3) mg/dL AST 118 H (14-36) U/L ALT 173 H (6-35) U/L Alkaline Phosphatase 192 H (38-126) U/L Albumin 3.8 (3.5-5.1) g/dL Urine 01/28/25 Range/Units 13:50 Urine Color Dark yellow (Yellow) Urine Appearance Clear (Clear) Urine pH 6.0 (5.0-9.0) Ur Specific [place] 1.024 (1.001-1.035) Urine Protein 1+ H (Negative) mg/dL Urine Glucose (UA) Negative (Negative) mg/dL Assessment and Plan Assessment and plan (1) Acute appendicitis: Code(s): K35.80 - Unspecified acute appendicitis Status: Acute Assessment and Plan: Surgery consulted Plan for OR tomorrow NPO IVF for hydration IV Rocephin and Flagyl (2) Essential (primary) hypertension: Code(s): I10 - Essential (primary) hypertension Status: Acute Assessment and Plan: Continue home hydrochlorothiazide and lisinopril (3) HLD (hyperlipidemia): Code(s): E78.5 - Hyperlipidemia, unspecified Status: Acute Assessment and Plan: Continue Lipitor (4) Hypothyroidism (acquired): Code(s): E03.9 - Hypothyroidism, unspecified Status: Acute Assessment and Plan: Continue levothyroxine (5) Diabetes mellitus: Qualifiers: Diabetes mellitus complication status: without complication 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: without web machine tender use Diabetes mellitus type: type 2 Qualified Code(s): E11.9 - Type 2 diabetes mellitus without complications Code(s): E11.9 - Type 2 diabetes mellitus without complications Status: Acute Assessment and Plan: Patient will need a diabetic diet after surgery Accu-Cheks q.6 (6) UTI (urinary tract infection): Code(s): N39.0 - Urinary tract infection, site not specified Status: Acute Assessment and Plan: Already on Rocephin Quality VTE Prophylaxis VTE prophylaxis: mechanical ordered Hospitalist MIPS Advance Care Plan I have confirmed that the patient's Advanced Care Plan is present, code status is documented, or surrogate decision maker is listed in patient medical record.: Yes Medication Reconciliation I have utilized all available resources to obtain, update and review the patients current medications (includes all prescriptions, OTC, herbals, cannabis, and nutritional supplements).: Yes
[2025-01-28] MEDS: metroNIDAZOLE 500 MG/ISO 100ML 500 MG/100 ML BAG 100 MG IVPB ×2 (15:28→20:46)
[2025-01-28 15:58] VITALS: BP 149/80; PULSE 74; RESP 16; O2SAT 98
[2025-01-28 16:08] VITALS: BMI 32.9
[2025-01-28] MEDS: SODIUM CHLORIDE 0.9% IV 1,000 ML 125 ML IV CONT (16:30)
--- NOTE | 2025-01-28 17:51 | ADMGEN ---
This patient, Shabana Rendon, was admitted to [facility] Surg Room 329-01. Patient/family oriented to hospital policies and general routines including ID bracelet, bed and alarms, visiting hours, pain management, procedures, bathroom and other care routines, personal items, smoking policy, room service/diet, and visiting hours. Information on how to activate the Rapid Response Team has been discussed. Patient/Family are encouraged to report perceived risks to care and to ask questions if they do not understand what they are told or what they should do.
[2025-01-28] MEDS: ONDANSETRON INJ 4 MG/2 ML VIAL IV PUSH (18:09)
[2025-01-28 21:00] VITALS: O2SAT 97
[2025-01-28 21:09] VITALS: BP 135/70; PULSE 75; RESP 16; TEMP 37; O2SAT 97
[2025-01-28] MEDS: MORPHINE SULFATE (*CRX) 2 MG/ML INJ IV PUSH (22:10)
[2025-01-29] VITALS (17 sets, daily range): BP systolic 112–153; BP diastolic 58–88; PULSE 65–82; RESP 13–18; TEMP 36.2–37.8; O2SAT 91–100
[2025-01-29 00:22] LABS: Glucose Point of Care 116 mg/dl (65-105)
[2025-01-29] MEDS: SODIUM CHLORIDE 0.9% IV 1,000 ML 125 ML IV CONT (01:31)
[2025-01-29] MEDS: MORPHINE SULFATE (*CRX) 2 MG/ML INJ IV PUSH (01:54)
[2025-01-29] MEDS: metroNIDAZOLE 500 MG/ISO 100ML 500 MG/100 ML BAG 100 MG IVPB ×3 (03:59→17:47)
[2025-01-29 06:08] LABS: Basophils Percent Auto 0.5 % (0.2-1.2); Eosinophils Absolute Auto 0.2 K/mm3 (0-0.3); Hematocrit 36.5 % (37.0-47.0); Hemoglobin 11.8 g/dL (12.0-15.0); Immature Granulocyte Absolute 0.03 K/mm3 (0.00-0.031); Immature Granulocyte Percent A 0.4 % (0-0.5); Lymphocytes Absolute Auto 1.31 K/mm3 (0.9-3.2); Lymphocytes Percent Auto 16.4 % (18.3-44.2); Mean Corpuscular HGB Conc 32.3 g/dl (32-36); Mean Corpuscular Hemoglobin 33.1 pg (26-34); Mean Corpuscular Volume 102.5 fl (80-100); Mean Platelet Volume 10.1 fl (7.4-10.4); Monocytes Percent Auto 11.9 % (2.6-8.5); Neutrophils Absolute Auto 5.5 K/mm3 (1.3-6.7); Neutrophils Percent Auto 68.8 % (45.5-73.1); Platelet Count Result 173 k/mm3 (150-375); Red Blood Count 3.56 M/mm3 (4.2-5.4); Red Cell Distribution Width 12.5 % (11.5-14.5)
[2025-01-29 06:12] LABS: Glucose Point of Care 121 mg/dl (65-105)
[2025-01-29 06:15] LABS: Alanine Aminotransferase 106 U/L (6-35); Albumin Level 3.1 g/dL (3.5-5.1); Alkaline Phosphatase 136 U/L (38-126); Anion Gap 8 mmol/L (4-12); Aspartate Amino Transferase 48 U/L (14-36); Blood Urea Nitrogen 18 mg/dL (7-17); Calcium 8.4 mg/dL (8.4-10.2); Carbon Dioxide 24 mmol/L (22-30); Chloride 104 mmol/L (98-107); Estimated CRCL calculation 74 ml/min; Estimated Glomerular Filt Rate > 60; Glucose 121 mg/dL (65-110); Potassium 3.7 mmol/L (3.4-5.0); Sodium 136 mmol/L (137-145)
--- NOTE | 2025-01-29 08:54 | WPDHPUPDATE1 ---
History and Physical Update Update Date/Time: 01/29/25 08:54 History and Physical has been reviewed, including an updated exam of the patient. There are NO changes in the patient's condition. Risks, benefits, and alternatives have been discussed and questions answered. Patient agrees to proceed with procedure.
--- NOTE | 2025-01-29 08:55 | P.CONGS_ITS ---
Assessment and Plan Assessment and plan (1) Acute appendicitis: Qualifiers: Acute appendicitis type: with localized peritonitis Appendicitis abscess presence: unspecified whether abscess present Appendicitis gangrene presence: unspecified whether gangrene present Appendicitis perforation presence: unspecified whether perforation present Qualified Code(s): K35.30 - Acute appendicitis with localized peritonitis, without perforation or gangrene Code(s): K35.80 - Unspecified acute appendicitis Status: Acute Assessment and Plan: * I have reviewed the CT and discussed the findings with the patient. She has evidence of acute appendicitis. I discussed medical and surgical treatment options and patient feels comfortable proceeding with surgery. She has been started broad-spectrum IV antibiotics. I have recommended proceeding with laparoscopic appendectomy, possible open. I discussed the procedure, risks, benefits, and alternatives. Questions were answered. 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 She began having vague abdominal pains about 4 days prior and was experiencing some bilateral flank pain as well. Yesterday morning the pain localized to the right lower quadrant. She denied any fevers or chills. She has never had any symptoms like this in the past. The emergency department she was noted to have an elevated white blood count but CT showed evidence of acute appendicitis. She was admitted and started on broad-spectrum IV antibiotics. Review of Systems 2 Review of Systems: All systems reviewed & are unremarkable except as noted in HPI and below Constitutional: Constitutional: Denies chills and Denies fever(s) Eyes: Eyes: Denies change in vision ENT: Denies hearing loss, Denies neck pain and Denies sore throat Cardiovascular: Cardiovascular: Denies chest pain and Denies dyspnea Respiratory: Respiratory: Denies cough, Denies dyspnea and Denies wheezing Gastrointestinal: Gastrointestinal: Reports as per HPI Genitourinary: Genitourinary: Denies hematuria and Denies dysuria Musculoskeletal: Musculoskeletal: Denies arthralgias, Denies joint swelling and Denies neck pain Allergic/Immunologic: Allergic/Immunologic: Denies wheezing [facility] Past Medical History Medical History UTI (urinary tract infection) Diabetes mellitus Sinusitis Dysuria Cellulitis Insect bite HLD (hyperlipidemia) Hypothyroidism (acquired) Essential (primary) hypertension Pulmonary nodules Depression Surgical History Surgical History (Updated 01/29/25 @ 09:22 by Neri Molina DO) History of bronchoscopy History of knee replacement Family History Family History (Updated 01/29/25 @ 09:23 by Neri Molina DO) Father Family history of appendicitis Mother Family history of appendicitis Social History Social History Smoking status: Never smoker Alcohol intake: current Drinks per week: 7 Alcohol use details: glass of wine daily Substance use: never Substance use type: does not use Do You Feel Safe in your Home?: Yes Lack of Transportation: No Lack of Food: Never True Current Housing: I Have Housing Concerned About Future Housing: No Difficulty Paying Gas/Electric Bills: No Difficulty Paying for Meds: No Currently Unemployed: No Education: Bachelor's Degree Difficulty w/ Childcare or Family Care: No Spiritual care concerns: No Meds Home Medications and Allergies Home Medications ?Medication ?Instructions ?Recorded ?Confirmed ?Type calcium 600 mg (as carbonate)-vit 1 tablet PO DAILY 11/15/19 01/28/25 History D3 10 mcg (400 unit)-minerals tablet flaxseed oil 1,000 mg capsule 1,000 mg PO DAILY 11/15/19 01/28/25 History loratadine 10 mg tablet (Claritin) 10 mg PO DAILY 01/04/24 01/28/25 History atorvastatin 10 mg tablet See Rx Instructions .Route 05/08/24 01/28/25 Rx .COMPLEX #90 tabs levothyroxine 75 mcg tablet See Rx Instructions .Route 05/10/24 01/28/25 Rx .COMPLEX #90 tabs cranberry 500 mg capsule 500 mg PO DAILY 05/30/24 01/28/25 History levomefolate 15 mg-algal oil See Rx Instructions .Route 08/09/24 01/28/25 Rx 90.314 mg capsule (Deplin (algal .COMPLEX #90 caps oil)) lisinopril 20 See Rx Instructions .Route 11/07/24 01/28/25 Rx mg-hydrochlorothiazide 12.5 mg .COMPLEX #90 tabs tablet Allergies Allergy/AdvReac Type Severity Reaction Status Date / Time Penicillins Allergy Mild Rash Verified 01/28/25 15:16 Sulfa (Sulfonamide Allergy Unknown Hives / Verified 01/28/25 15:16 Antibiotics) Red Face Vital Signs Vital Signs - 24 hr 01/28/25 12:54 01/28/25 15:21 01/28/25 15:58 Temperature 97.6 F Pulse Rate 88 72 74 Respiratory Rate 16 18 16 Blood Pressure 139/75 149/80 H 149/80 H Pulse Oximetry 97 100 98 Oxygen Delivery Fraction of Inspired Oxygen 01/28/25 17:56 01/28/25 20:05 01/28/25 21:00 Temperature Pulse Rate Respiratory Rate Blood Pressure Pulse Oximetry 97 Oxygen Delivery Room Air Room Air Room Air Fraction of Inspired Oxygen 21 01/28/25 21:09 01/29/25 05:54 Temperature 98.6 F 97.9 F Pulse Rate 75 75 Respiratory Rate 16 16 Blood Pressure 135/70 124/84 Pulse Oximetry 97 96 Oxygen Delivery Fraction of Inspired Oxygen Exam 2 Const: General: alert; No acute distress Orientation/consciousness: patient oriented x3 Limitations: no limitations HENMT: Head: normocephalic and atraumatic Ears: hearing grossly normal bilaterally Face/Nose/Sinus: Normal external nose present and Normal nares present Mouth: Yes Normal oral and palatal mucosa present and Yes moist mucous membranes Eyes: General: appearance normal, both eyes and all related structures C onjunctivae: conjunctivae normal Sclera: sclerae normal Pupils: Equal, round and reactive pupils present EOM: EOMs intact bilaterally Neck: Neck: normal visual inspection, full ROM, no lymphadenopathy, supple and no JVD Lymphatic: no lymphadenopathy noted Chest: Chest palpation & inspection: normal inspection of the chest Resp: Effort & Inspection: normal respiratory effort and able to speak in complete sentences Auscultation: clear to auscultation bilaterally P ercussion: percussion normal Cardio: Jugular venous distension: no JVD Rate: regular rate Rhythm: r egular rhythm Heart sounds: S1 normal heart sound present and S2 normal heart sound present Peripheral pulses: Peripheral pulses 2+ throughout GI: Inspection: normal to inspection and non-distended GI Palp: Yes Soft to palpation, Yes Tenderness to palpation present (GI) (Right lower quadrant and left lower quadrant), Yes Guarding due to palpation present (GI) (Right lower quadrant) and No Rebound tenderness present Auscultation: normal bowel sounds : General: Yes no CVA tenderness Back/Spine/Pelvis: Back: no CVA tenderness Skin: General skin exam: normal color and dry skin Neuro: General: patient oriented x3, gait normal, moves all extremities, no focal motor deficits and CN's II-XI intact bilaterally Cranial nerves: Yes Equal, round and reactive pupils present Speech: normal speech Extrem: General: normal to inspection and capillary refill normal Results Labs 01/29/25 05:24 01/29/25 05:24 Labs: Abnormal lab results 01/28/25 01/28/25 01/29/25 Range/Units 13:50 23:59 05:24 RBC 4.04 L 3.56 L (4.2-5.4) M/mm3 Hgb 11.8 L (12.0-15.0) g/dL Hct 36.5 L (37.0-47.0) % MCV 100.7 H 102.5 H (80-100) fl Lymph % (Auto) 16.9 L 16.4 L (18.3-44.2) % [place] % (Auto) 10.1 H 11.9 H (2.6-8.5) % [place] # (Auto) 1.0 H 1.0 H (0.1-0.6) K/mm3 Absolute Neuts (auto) 6.8 H (1.3-6.7) K/mm3 Sodium 136 L (137-145) mmol/L BUN 29 H 18 H D (7-17) mg/dL Creatinine 0.64 L 0.64 L (0.7-1.0) mg/dL Glucose 114 H 121 H (65-110) mg/dL POC Capillary Glucose 116 H (65-105) mg/dl Total Bilirubin 1.4 H (0.2-1.3) mg/dL AST 118 H 48 H (14-36) U/L ALT 173 H 106 H (6-35) U/L Alkaline Phosphatase 192 H 136 H (38-126) U/L Total Protein 6.0 L 6.0 L (6.3-8.2) g/dL Albumin 3.1 L (3.5-5.1) g/dL Urine Protein 1+ H (Negative) mg/dL Urine Ketones Trace H (Negative) mg/dL Leukocyte Esterase Rfl 2+ H (Negative) ALEXEI/UL Urine WBC 11-20 H (0-3) /hpf 01/29/25 Range/Units 06:04 RBC (4.2-5.4) M/mm3 Hgb (12.0-15.0) g/dL Hct (37.0-47.0) % MCV (80-100) fl Lymph % (Auto) (18.3-44.2) % [place] % (Auto) (2.6-8.5) % [place] # (Auto) (0.1-0.6) K/mm3 Absolute Neuts (auto) (1.3-6.7) K/mm3 Sodium (137-145) mmol/L BUN (7-17) mg/dL Creatinine (0.7-1.0) mg/dL Glucose (65-110) mg/dL POC Capillary Glucose 121 H (65-105) mg/dl Total Bilirubin (0.2-1.3) mg/dL AST (14-36) U/L ALT (6-35) U/L Alkaline Phosphatase (38-126) U/L Total Protein (6.3-8.2) g/dL Albumin (3.5-5.1) g/dL Urine Protein (Negative) mg/dL Urine Ketones (Negative) mg/dL Leukocyte Esterase Rfl (Negative) ALEXEI/UL Urine WBC (0-3) /hpf Diabetes panel 01/28/25 01/29/25 Range/Units 13:50 05:24 Sodium 138 136 L (137-145) mmol/L Potassium 4.1 3.7 (3.4-5.0) mmol/L Chloride 104 104 (98-107) mmol/L Carbon Dioxide 22 24 (22-30) mmol/L BUN 29 H 18 H D (7-17) mg/dL Creatinine 0.64 L 0.64 L (0.7-1.0) mg/dL Glucose 114 H 121 H (65-110) mg/dL Calcium 9.6 8.4 (8.4-10.2) mg/dL AST 118 H 48 H (14-36) U/L ALT 173 H 106 H (6-35) U/L Alkaline Phosphatase 192 H 136 H (38-126) U/L Total Protein 6.0 L 6.0 L (6.3-8.2) g/dL Albumin 3.8 3.1 L (3.5-5.1) g/dL Calcium panel 01/28/25 01/29/25 Range/Units 13:50 05:24 Calcium 9.6 8.4 (8.4-10.2) mg/dL Albumin 3.8 3.1 L (3.5-5.1) g/dL Pituitary panel 01/28/25 01/29/25 Range/Units 13:50 05:24 Sodium 138 136 L (137-145) mmol/L Potassium 4.1 3.7 (3.4-5.0) mmol/L Chloride 104 104 (98-107) mmol/L Carbon Dioxide 22 24 (22-30) mmol/L BUN 29 H 18 H D (7-17) mg/dL Creatinine 0.64 L 0.64 L (0.7-1.0) mg/dL Glucose 114 H 121 H (65-110) mg/dL Calcium 9.6 8.4 (8.4-10.2) mg/dL Adrenal panel 01/28/25 01/29/25 Range/Units 13:50 05:24 Sodium 138 136 L (137-145) mmol/L Potassium 4.1 3.7 (3.4-5.0) mmol/L Chloride 104 104 (98-107) mmol/L Carbon Dioxide 22 24 (22-30) mmol/L BUN 29 H 18 H D (7-17) mg/dL Creatinine 0.64 L 0.64 L (0.7-1.0) mg/dL Glucose 114 H 121 H (65-110) mg/dL Calcium 9.6 8.4 (8.4-10.2) mg/dL Total Bilirubin 1.4 H 1.0 (0.2-1.3) mg/dL AST 118 H 48 H (14-36) U/L ALT 173 H 106 H (6-35) U/L Alkaline Phosphatase 192 H 136 H (38-126) U/L Total Protein 6.0 L 6.0 L (6.3-8.2) g/dL Albumin 3.8 3.1 L (3.5-5.1) g/dL All other labs normal. Imaging Additional studies: ITS Impressions Abdomen/Pelvis CT 01/28/25 15:02 IMPRESSION: Mild esophagitis/gastritis. Severe acute appendicitis, with evidence of appendiceal wall breakdown. No current evidence of perforation or abscess.
--- NOTE | 2025-01-29 09:00 | P.CONGS_ITS ---
History of Present Illness Consult details Consult date: 01/29/25 Reason for consult: other (Acute appendicitis) Requesting physician: Mar Camarillo MD Narrative: This is a 74-year-old woman with PMH of hypertension, hyperlipidemia PMFSH Past Medical History Medical History (Updated 01/29/25 @ 08:56 by Neri Molina DO) UTI (urinary tract infection) Diabetes mellitus Sinusitis Dysuria Cellulitis Insect bite HLD (hyperlipidemia) Hypothyroidism (acquired) Essential (primary) hypertension Pulmonary nodules Depression Social History Social History (Updated 11/28/24 @ 11:37 by Kimberlyn Figueroa MA) Smoking status: Never smoker Alcohol intake: current Drinks per week: 7 Alcohol use details: glass of wine daily Substance use: never Substance use type: does not use Do You Feel Safe in your Home?: Yes Lack of Transportation: No Lack of Food: Never True Current Housing: I Have Housing Concerned About Future Housing: No Difficulty Paying Gas/Electric Bills: No Difficulty Paying for Meds: No Currently Unemployed: No Education: Bachelor's Degree Difficulty w/ Childcare or Family Care: No Spiritual care concerns: No Meds Home Medications and Allergies Home Medications ?Medication ?Instructions ?Recorded ?Confirmed ?Type calcium 600 mg (as carbonate)-vit 1 tablet PO DAILY 11/15/19 01/28/25 History D3 10 mcg (400 unit)-minerals tablet flaxseed oil 1,000 mg capsule 1,000 mg PO DAILY 11/15/19 01/28/25 History loratadine 10 mg tablet (Claritin) 10 mg PO DAILY 01/04/24 01/28/25 History atorvastatin 10 mg tablet See Rx Instructions .Route 05/08/24 01/28/25 Rx .COMPLEX #90 tabs levothyroxine 75 mcg tablet See Rx Instructions .Route 05/10/24 01/28/25 Rx .COMPLEX #90 tabs cranberry 500 mg capsule 500 mg PO DAILY 05/30/24 01/28/25 History levomefolate 15 mg-algal oil See Rx Instructions .Route 08/09/24 01/28/25 Rx 90.314 mg capsule (Deplin (algal .COMPLEX #90 caps oil)) lisinopril 20 See Rx Instructions .Route 11/07/24 01/28/25 Rx mg-hydrochlorothiazide 12.5 mg .COMPLEX #90 tabs tablet Allergies Allergy/AdvReac Type Severity Reaction Status Date / Time Penicillins Allergy Mild Rash Verified 01/28/25 15:16 Sulfa (Sulfonamide Allergy Unknown Hives / Verified 01/28/25 15:16 Antibiotics) Red Face Vital Signs Vital Signs - 24 hr 01/28/25 12:54 01/28/25 15:21 01/28/25 15:58 Temperature 97.6 F Pulse Rate 88 72 74 Respiratory Rate 16 18 16 Blood Pressure 139/75 149/80 H 149/80 H Pulse Oximetry 97 100 98 Oxygen Delivery Fraction of Inspired Oxygen 01/28/25 17:56 01/28/25 20:05 01/28/25 21:00 Temperature Pulse Rate Respiratory Rate Blood Pressure Pulse Oximetry 97 Oxygen Delivery Room Air Room Air Room Air Fraction of Inspired Oxygen 21 01/28/25 21:09 01/29/25 05:54 Temperature 98.6 F 97.9 F Pulse Rate 75 75 Respiratory Rate 16 16 Blood Pressure 135/70 124/84 Pulse Oximetry 97 96 Oxygen Delivery Fraction of Inspired Oxygen Results Labs 01/29/25 05:24 01/29/25 05:24 Labs: Abnormal lab results 01/28/25 01/28/25 01/29/25 Range/Units 13:50 23:59 05:24 RBC 4.04 L 3.56 L (4.2-5.4) M/mm3 Hgb 11.8 L (12.0-15.0) g/dL Hct 36.5 L (37.0-47.0) % MCV 100.7 H 102.5 H (80-100) fl Lymph % (Auto) 16.9 L 16.4 L (18.3-44.2) % [place] % (Auto) 10.1 H 11.9 H (2.6-8.5) % [place] # (Auto) 1.0 H 1.0 H (0.1-0.6) K/mm3 Absolute Neuts (auto) 6.8 H (1.3-6.7) K/mm3 Sodium 136 L (137-145) mmol/L BUN 29 H 18 H D (7-17) mg/dL Creatinine 0.64 L 0.64 L (0.7-1.0) mg/dL Glucose 114 H 121 H (65-110) mg/dL POC Capillary Glucose 116 H (65-105) mg/dl Total Bilirubin 1.4 H (0.2-1.3) mg/dL AST 118 H 48 H (14-36) U/L ALT 173 H 106 H (6-35) U/L Alkaline Phosphatase 192 H 136 H (38-126) U/L Total Protein 6.0 L 6.0 L (6.3-8.2) g/dL Albumin 3.1 L (3.5-5.1) g/dL Urine Protein 1+ H (Negative) mg/dL Urine Ketones Trace H (Negative) mg/dL Leukocyte Esterase Rfl 2+ H (Negative) ALEXEI/UL Urine WBC 11-20 H (0-3) /hpf 01/29/25 Range/Units 06:04 RBC (4.2-5.4) M/mm3 Hgb (12.0-15.0) g/dL Hct (37.0-47.0) % MCV (80-100) fl Lymph % (Auto) (18.3-44.2) % [place] % (Auto) (2.6-8.5) % [place] # (Auto) (0.1-0.6) K/mm3 Absolute Neuts (auto) (1.3-6.7) K/mm3 Sodium (137-145) mmol/L BUN (7-17) mg/dL Creatinine (0.7-1.0) mg/dL Glucose (65-110) mg/dL POC Capillary Glucose 121 H (65-105) mg/dl Total Bilirubin (0.2-1.3) mg/dL AST (14-36) U/L ALT (6-35) U/L Alkaline Phosphatase (38-126) U/L Total Protein (6.3-8.2) g/dL Albumin (3.5-5.1) g/dL Urine Protein (Negative) mg/dL Urine Ketones (Negative) mg/dL Leukocyte Esterase Rfl (Negative) ALEXEI/UL Urine WBC (0-3) /hpf Diabetes panel 01/28/25 01/29/25 Range/Units 13:50 05:24 Sodium 138 136 L (137-145) mmol/L Potassium 4.1 3.7 (3.4-5.0) mmol/L Chloride 104 104 (98-107) mmol/L Carbon Dioxide 22 24 (22-30) mmol/L BUN 29 H 18 H D (7-17) mg/dL Creatinine 0.64 L 0.64 L (0.7-1.0) mg/dL Glucose 114 H 121 H (65-110) mg/dL Calcium 9.6 8.4 (8.4-10.2) mg/dL AST 118 H 48 H (14-36) U/L ALT 173 H 106 H (6-35) U/L Alkaline Phosphatase 192 H 136 H (38-126) U/L Total Protein 6.0 L 6.0 L (6.3-8.2) g/dL Albumin 3.8 3.1 L (3.5-5.1) g/dL Calcium panel 01/28/25 01/29/25 Range/Units 13:50 05:24 Calcium 9.6 8.4 (8.4-10.2) mg/dL Albumin 3.8 3.1 L (3.5-5.1) g/dL Pituitary panel 01/28/25 01/29/25 Range/Units 13:50 05:24 Sodium 138 136 L (137-145) mmol/L Potassium 4.1 3.7 (3.4-5.0) mmol/L Chloride 104 104 (98-107) mmol/L Carbon Dioxide 22 24 (22-30) mmol/L BUN 29 H 18 H D (7-17) mg/dL Creatinine 0.64 L 0.64 L (0.7-1.0) mg/dL Glucose 114 H 121 H (65-110) mg/dL Calcium 9.6 8.4 (8.4-10.2) mg/dL Adrenal panel 01/28/25 01/29/25 Range/Units 13:50 05:24 Sodium 138 136 L (137-145) mmol/L Potassium 4.1 3.7 (3.4-5.0) mmol/L Chloride 104 104 (98-107) mmol/L Carbon Dioxide 22 24 (22-30) mmol/L BUN 29 H 18 H D (7-17) mg/dL Creatinine 0.64 L 0.64 L (0.7-1.0) mg/dL Glucose 114 H 121 H (65-110) mg/dL Calcium 9.6 8.4 (8.4-10.2) mg/dL Total Bilirubin 1.4 H 1.0 (0.2-1.3) mg/dL AST 118 H 48 H (14-36) U/L ALT 173 H 106 H (6-35) U/L Alkaline Phosphatase 192 H 136 H (38-126) U/L Total Protein 6.0 L 6.0 L (6.3-8.2) g/dL Albumin 3.8 3.1 L (3.5-5.1) g/dL All other labs normal.
--- NOTE | 2025-01-29 09:13 | WPDANESEPPF ---
Anes - Initial Pre Proc Eval Procedure: Operation Date: 01/29/25 10:30 Proposed Procedures p Laparoscopic Appendectomy, Possible Open - Neri Molina DO Date/Time: 01/29/25 09:13 Surgeon: Usama Roem MD Pre Op Diagnosis: appy Patient Data Age: 74 Gender: F Height: 1.68 m Weight: 92.5 kg Last Vital Signs Temp 36.6 C 01/29/25 05:54 Pulse 75 01/29/25 05:54 Resp 16 01/29/25 05:54 BP 124/84 01/29/25 05:54 Pulse Ox 96 01/29/25 05:54 O2 Del Method Room Air 01/28/25 21:00 FiO2 21 01/28/25 21:00 Allergies Allergy/AdvReac Type Severity Reaction Status Date / Time Penicillins Allergy Mild Rash Verified 01/28/25 15:16 Sulfa (Sulfonamide Allergy Unknown Hives / Verified 01/28/25 15:16 Antibiotics) Red Face Home Medications ?Medication ?Instructions ?Recorded ?Confirmed ?Type calcium 600 mg (as carbonate)-vit 1 tablet PO DAILY 11/15/19 01/28/25 History D3 10 mcg (400 unit)-minerals tablet flaxseed oil 1,000 mg capsule 1,000 mg PO DAILY 11/15/19 01/28/25 History loratadine 10 mg tablet (Claritin) 10 mg PO DAILY 01/04/24 01/28/25 History atorvastatin 10 mg tablet See Rx Instructions .Route 05/08/24 01/28/25 Rx .COMPLEX #90 tabs levothyroxine 75 mcg tablet See Rx Instructions .Route 05/10/24 01/28/25 Rx .COMPLEX #90 tabs cranberry 500 mg capsule 500 mg PO DAILY 05/30/24 01/28/25 History levomefolate 15 mg-algal oil See Rx Instructions .Route 08/09/24 01/28/25 Rx 90.314 mg capsule ([place] (algal .COMPLEX #90 caps oil)) lisinopril 20 See Rx Instructions .Route 11/07/24 01/28/25 Rx mg-hydrochlorothiazide 12.5 mg .COMPLEX #90 tabs tablet Laboratory Tests 01/28/25 01/28/25 01/28/25 13:50 14:29 23:59 WBC 9.6 K/mm3 (4.5-10.0) RBC 4.04 L M/mm3 (4.2-5.4) Hgb 13.3 g/dL (12.0-15.0) Hct 40.7 % (37.0-47.0) MCV 100.7 H fl (80-100) MCH 32.9 pg (26-34) MCHC 32.7 g/dl (32-36) RDW 12.4 % (11.5-14.5) Plt Count 160 k/mm3 (150-375) MPV 10.0 fl (7.4-10.4) Immature Gran % (Auto) 0.2 % (0-0.5) Neut % (Auto) 71.3 % (45.5-73.1) Lymph % (Auto) 16.9 L % (18.3-44.2) [place] % (Auto) 10.1 H % (2.6-8.5) Eos % (Auto) 1.3 % (0-4.4) Baso % (Auto) 0.2 % (0.2-1.2) Lymph # (Auto) 1.62 K/mm3 (0.9-3.2) [place] # (Auto) 1.0 H K/mm3 (0.1-0.6) Eos # (Auto) 0.1 K/mm3 (0-0.3) Baso # (Auto) 0.0 K/mm3 (0.0-0.1) Abs Immat Gran (auto) 0.02 K/mm3 (0.00-0.031) Absolute Neuts (auto) 6.8 H K/mm3 (1.3-6.7) Absolute Nucleated RBC 0.000 K/mm3 (0.0-0.012) Nucleated RBC % 0.0 % (0.0-0.2) Sodium 138 mmol/L (137-145) Potassium 4.1 mmol/L (3.4-5.0) Chloride 104 mmol/L (98-107) Carbon Dioxide 22 mmol/L (22-30) Anion Gap 12 mmol/L (4-12) BUN 29 H mg/dL (7-17) Creatinine 0.64 L mg/dL (0.7-1.0) Estim Creat Clear Calc 75 ml/min Estimated GFR > 60 (59 - ) Glucose 114 H mg/dL (65-110) POC Capillary Glucose 116 H mg/dl (65-105) Calcium 9.6 mg/dL (8.4-10.2) Total Bilirubin 1.4 H mg/dL (0.2-1.3) AST 118 H U/L (14-36) ALT 173 H U/L (6-35) Alkaline Phosphatase 192 H U/L (38-126) Total Protein 6.0 L g/dL (6.3-8.2) Albumin 3.8 g/dL (3.5-5.1) Lipase 30 U/L (23-300) Urine Color Dark yellow (Yellow) Urine Appearance Clear (Clear) Urine pH 6.0 (5.0-9.0) Ur Specific [place] 1.024 (1.001-1.035) Urine Protein 1+ H mg/dL (Negative) Urine Glucose (UA) Negative mg/dL (Negative) Urine Ketones Trace H mg/dL (Negative) Ur Blood (Man) Negative (Negative) Urine Nitrate Negative (Negative) Urine Bilirubin Negative (Negative) Urine Urobilinogen 1.0 mg/dL (<2.0) Leukocyte Esterase Rfl 2+ H ALEXEI/UL (Negative) Urine RBC 0-2 /hpf (0-2) Urine WBC 11-20 H /hpf (0-3) Ur Squamous Epith Cells Few /hpf (Few) Urine Bacteria Rare /hpf Urine Casts 0-2 Influenza A (RT-PCR) Negative (Negative) Influenza B (RT-PCR) Negative (Negative) RSV (RT-PCR) Negative (Negative) SARS-CoV-2 RNA (RT-PCR) Negative (Negative) 01/29/25 01/29/25 05:24 06:04 WBC 8.0 K/mm3 (4.5-10.0) RBC 3.56 L M/mm3 (4.2-5.4) Hgb 11.8 L g/dL (12.0-15.0) Hct 36.5 L % (37.0-47.0) MCV 102.5 H fl (80-100) MCH 33.1 pg (26-34) MCHC 32.3 g/dl (32-36) RDW 12.5 % (11.5-14.5) Plt Count 173 k/mm3 (150-375) MPV 10.1 fl (7.4-10.4) Immature Gran % (Auto) 0.4 % (0-0.5) Neut % (Auto) 68.8 % (45.5-73.1) Lymph % (Auto) 16.4 L % (18.3-44.2) [place] % (Auto) 11.9 H % (2.6-8.5) Eos % (Auto) 2.0 % (0-4.4) Baso % (Auto) 0.5 % (0.2-1.2) Lymph # (Auto) 1.31 K/mm3 (0.9-3.2) [place] # (Auto) 1.0 H K/mm3 (0.1-0.6) Eos # (Auto) 0.2 K/mm3 (0-0.3) Baso # (Auto) 0.0 K/mm3 (0.0-0.1) Abs Immat Gran (auto) 0.03 K/mm3 (0.00-0.031) Absolute Neuts (auto) 5.5 K/mm3 (1.3-6.7) Absolute Nucleated RBC 0.000 K/mm3 (0.0-0.012) Nucleated RBC % 0.0 % (0.0-0.2) Sodium 136 L mmol/L (137-145) Potassium 3.7 mmol/L (3.4-5.0) Chloride 104 mmol/L (98-107) Carbon Dioxide 24 mmol/L (22-30) Anion Gap 8 mmol/L (4-12) BUN 18 H D mg/dL (7-17) Creatinine 0.64 L mg/dL (0.7-1.0) Estim Creat Clear Calc 74 ml/min Estimated GFR > 60 (59 - ) Glucose 121 H mg/dL (65-110) POC Capillary Glucose 121 H mg/dl (65-105) Calcium 8.4 mg/dL (8.4-10.2) Total Bilirubin 1.0 mg/dL (0.2-1.3) AST 48 H U/L (14-36) ALT 106 H U/L (6-35) Alkaline Phosphatase 136 H U/L (38-126) Total Protein 6.0 L g/dL (6.3-8.2) Albumin 3.1 L g/dL (3.5-5.1) Lipase Urine Color Urine Appearance Urine pH Ur Specific [place] Urine Protein Urine Glucose (UA) Urine Ketones Ur Blood (Man) Urine Nitrate Urine Bilirubin Urine Urobilinogen Leukocyte Esterase Rfl Urine RBC Urine WBC Ur Squamous Epith Cells Urine Bacteria Urine Casts Influenza A (RT-PCR) Influenza B (RT-PCR) RSV (RT-PCR) SARS-CoV-2 RNA (RT-PCR) Patient hx anesthesia problems: none Family hx anesthesia problems: none Results Review: All pre-operative results and documents have been reviewed as part of the pre-operative evaluation. [facility] Past Medical History Medical History UTI (urinary tract infection) Diabetes mellitus Sinusitis Dysuria Cellulitis Insect bite HLD (hyperlipidemia) Hypothyroidism (acquired) Essential (primary) hypertension Pulmonary nodules Depression Social History Social History Smoking status: Never smoker Alcohol intake: current Drinks per week: 7 Alcohol use details: glass of wine daily Substance use: never Substance use type: does not use Do You Feel Safe in your Home?: Yes Lack of Transportation: No Lack of Food: Never True Current Housing: I Have Housing Concerned About Future Housing: No Difficulty Paying Gas/Electric Bills: No Difficulty Paying for Meds: No Currently Unemployed: No Education: Bachelor's Degree Difficulty w/ Childcare or Family Care: No Spiritual care concerns: No Anes - Eval Final PreProcedure Day of Procedure 01/29/25 09:13 Patient weight: obese Heart: regular rate and rhythm Lungs: clear to auscultation Airway: Mallampati scale class II Neurological: alert and oriented Last oral intake: >/= 8 hours ASA classification: III Emergent: no Anesthetic plan: proceed Anesthesia type and monitoring: general GIVS and standard monitoring Results Review: All pre-operative results and documents have been reviewed as part of the pre-operative evaluation. Informed Consent: The patient's anesthetic plan and its attendant risks and benefits were discussed with the patient/family/POA. Questions were solicited and answers provided to the satisfaction of the patient/family/POA.
[2025-01-29] MEDS: LACTATED RINGERS 1,000 ML 30 ML IV CONT ×2 (09:14→10:23)
[2025-01-29 09:15] LABS: Glucose Point of Care 134 mg/dl (65-105)
[2025-01-29] MEDS: BUPIVACAINE/EPINEPHRINE 0.5% 50 ML VIAL 30 ML INFILTRATE (10:02)
--- NOTE | 2025-01-29 10:24 | W.PM.PROC2 ---
Procedure Note - Detailed Date of Procedure 01/29/25 Pre-op Diagnosis ACUTE APPENDICITIS Post-op Diagnosis Same (Acute perforated appendicitis with abscess) Procedure Performed 1. Laparoscopic appendectomy 2. Laparoscopic drainage of intra-abdominal abscess Surgeon Neri Molina, DO Anesthesia General and Local (0.5% bupivicaine with epinephrine) Indications This is a 74-year-old woman who presented to the emergency department with right lower quadrant pain. She began having symptoms about 4 days ago but yesterday pain became more pronounced right lower quadrant. She denied any fevers chills. She has never had any symptoms like this in the past. In the emergency department and a CT showed evidence of severe acute appendicitis. Discussions were made with the patient about treatment options and decision was made to proceed with laparoscopic appendectomy, possible open. Findings Laparoscopic appendectomy was performed. The patient was found to have perforated appendicitis with a surrounding periappendiceal abscess. The terminal ileum was mobilized off of the appendix and the area of perforation and abscess was identified. The abscess was drained with a suction application engineer. The base of the appendix appeared healthy and viable. The appendix was removed and sent to the lab for pathology. I irrigated the pelvis and right lower quadrant with about 1 L of sterile saline. No other signs of abscess or purulence fluid was identified. Description of Procedure Procedure as well as risks, benefits, and alternatives were explained to the patient. The patient agreed to proceed. Written consent was obtained and placed in chart prior to procedure. The patient was brought back to surgical suite. She was placed supine on operating table. Time-out was done to confirm the patient and procedure. The patient was then intubated by the Anesthesia Department. Her abdomen was prepped and draped in sterile fashion using chlorhexidine prep. A 5 mm incision was made just to the left of the patient's umbilicus and a 5 mm Optiview trocar was advanced through the abdominal layers under direct visualization. Once inside the peritoneal cavity, carbon dioxide insufflation was used to create a pneumoperitoneum. The camera was inserted and the abdomen was inspected. No immediate abnormalities were identified. The patient was then placed in slight Trendelenburg position and rotated to the left. A 5 mm incision was made in the suprapubic region in midline and a 5 mm trocar was inserted under direct visualization. A 12 mm incision was made in the left lower quadrant and a 12 mm trocar was inserted under direct visualization. The terminal ileum was mobilized off of the cecum with careful blunt dissection and an abscess cavity was identified. This was suctioned using a suction application engineer. The right lower quadrant was carefully inspected. The cecum was identified and then this was traced back to the appendix. The appendix was identified and grasped at the mesoappendix and lifted anteriorly. Careful blunt dissection was carried out at the base of the appendix through the mesoappendix using a [place] grasper. An Endo-JOSÉ 45 mm blue load stapler was then advanced across the base of the appendix and clamped and fired. A white reload was then clamped across the mesoappendix and fired. This freed up our appendix completely. It was then placed in an EndoCatch bag and removed through the left lower quadrant port. The staple lines were then inspected. Hemostasis appeared adequate and the staple lines appeared secure. The area was then irrigated with sterile saline. The pelvis was then carefully inspected and irrigated with sterile saline as well and the remainder of the abdomen was carefully inspected. The patient was then flattened out in bed. One final inspection was made around the abdominal cavity and no other abnormalities were seen. The left lower quadrant port was removed and a Vinny-Elton cone was used to approximate the fascia with an 0 Vicryl simple interrupted suture. The remaining ports were then removed under direct visualization. The camera was removed and the pneumoperitoneum was released. 0.5% bupivacaine with epinephrine was infiltrated locally around each of the incisions. The skin of the incisions was then approximated using 4-0 Monocryl subcuticular suture and Exofin glue was applied on top. The patient was then awakened from anesthesia, extubated, and transferred to Recovery. Estimated Blood Loss 10 Urine Output 300 Pathology Yes (Appendix) Complications No immediate complications Condition Stable Disposition Floor [facility] Billing Surgery - Charge Forward: Surgery Billing
[2025-01-29 10:45] LABS: Glucose Point of Care 124 mg/dl (65-105)
[2025-01-29] MEDS: fentaNYL CITRATE INJ (*CRX) 100 MCG/2 ML VIAL 25 MCG IV PUSH ×7 (10:46→11:50)
[2025-01-29] MEDS: hydroCHLOROthiazide 12.5 MG CAPSULE PO (12:19)
[2025-01-29] MEDS: LORATADINE 10 MG TABLET PO (12:19)
[2025-01-29] MEDS: lisinopriL 20 MG TABLET PO (12:19)
[2025-01-29] MEDS: ATORVASTATIN 10 MG TABLET PO (12:19)
[2025-01-29] MEDS: LACTATED RINGERS 1,000 ML 100 ML IV CONT (15:05)
--- NOTE | 2025-01-29 17:50 | P.PNIM_ITS ---
Progress Note: A&P Assessment and Plan (1) Acute appendicitis: Qualifiers: Acute appendicitis type: with localized peritonitis Appendicitis abscess presence: unspecified whether abscess present Appendicitis gangrene presence: unspecified whether gangrene present Appendicitis perforation presence: unspecified whether perforation present Qualified Code(s): K35.30 - Acute appendicitis with localized peritonitis, without perforation or gangrene Code(s): K35.80 - Unspecified acute appendicitis Status: Acute Assessment and Plan: Surgery consulted Plan for OR tomorrow NPO IVF for hydration IV Rocephin and Flagyl (2) Essential (primary) hypertension: Code(s): I10 - Essential (primary) hypertension Status: Acute Assessment and Plan: Continue home hydrochlorothiazide and lisinopril (3) HLD (hyperlipidemia): Code(s): E78.5 - Hyperlipidemia, unspecified Status: Acute Assessment and Plan: Continue Lipitor (4) Hypothyroidism (acquired): Code(s): E03.9 - Hypothyroidism, unspecified Status: Acute Assessment and Plan: Continue levothyroxine (5) Diabetes mellitus: Qualifiers: Diabetes mellitus type: type 2 Diabetes mellitus fdc insulin use: without roasterman use Diabetes mellitus complication status: without complication Qualified Code(s): E11.9 - Type 2 diabetes mellitus without complications Code(s): E11.9 - Type 2 diabetes mellitus without complications Status: Acute Assessment and Plan: Patient will need a diabetic diet after surgery Accu-Cheks q.6 (6) UTI (urinary tract infection): Code(s): N39.0 - Urinary tract infection, site not specified Status: Acute Assessment and Plan: Already on Rocephin Plan patient was seen by surgery service and was taken to OR had laparoscopic appendectomy and laparoscopic drainage of intra-abdominal abscess, patient stats feels much better pain has improved, patient is clinically stable will monitor and plan. Subjective Date/time seen: 01/29/25 17:50 Interval history: Acute abdominal pain Narrative: 74-year-old female past medical history hypertension, pulmonary nodules hypothyroidism hyperlipidemia and diabetes presents the hospital with acute abdominal pain. Patient states that she started having abdominal pain on . She thought it was could she had had a bowel movement so she took some MiraLax. Wednesday and Wednesday she had normal bowel movements however the pain continued so she presented to the hospital. Patient denies nausea or vomiting. She states the pain is on the right side of her abdomen worse with movement or palpation. Better with pain medication and rest. Her lab work shows total bilirubin of 1.4, AST of 118, ALT of 173, alkaline phos of 192, UA shows dark urine with 2+ leukocyte esterase wbc's 11-20, and negative for nitrates. CT abdomen pelvis shows mild gastritis with Severe acute appendicitis, with evidence of appendiceal wall breakdown. No current evidence of perforation or abscess. Surgery has been consulted and plan for OR in the morning. Patient is NPO. patient was seen by surgery service and was taken to OR had laparoscopic appendectomy and laparoscopic drainage of intra-abdominal abscess, patient stats feels much better pain has improved, patient is clinically stable will monitor and plan. Review of Systems Review of Systems: 12 systems were reviewed and are negativ e except for as per HPI. Objective Data Vital Signs Vital Signs: Vital Signs - 24 hr 01/28/25 17:56 01/28/25 20:05 01/28/25 21:00 Temperature Pulse Rate Respiratory Rate Blood Pressure Pulse Oximetry 97 Oxygen Delivery Room Air Room Air Room Air Oxygen Flow Rate Fraction of Inspired Oxygen 01/28/25 21:09 01/29/25 05:54 01/29/25 08:00 Temperature 37.0 C 36.6 C Pulse Rate 75 75 Respiratory Rate 16 16 Blood Pressure 135/70 124/84 Pulse Oximetry 97 96 Oxygen Delivery Room Air Oxygen Flow Rate Fraction of Inspired Oxygen 01/29/25 09:15 01/29/25 10:25 01/29/25 10:40 Temperature 37.2 C 36.3 C L Pulse Rate 73 65 73 Respiratory Rate 16 16 16 Blood Pressure 112/88 113/65 125/73 Pulse Oximetry 97 100 100 Oxygen Delivery Room Air Simple Face Mask Simple Face Mask Oxygen Flow Rate 8 8 Fraction of Inspired Oxygen 01/29/25 10:55 01/29/25 11:10 01/29/25 11:25 Temperature Pulse Rate 73 77 76 Respiratory Rate 16 13 14 Blood Pressure 125/71 152/74 H 152/74 H Pulse Oximetry 100 94 91 Oxygen Delivery Simple Face Mask Room Air Room Air Oxygen Flow Rate 8 Fraction of Inspired Oxygen 01/29/25 11:40 01/29/25 11:55 01/29/25 13:07 Temperature 36.2 C L Pulse Rate 72 75 72 Respiratory Rate 15 17 18 Blood Pressure 153/77 H 143/79 H 149/67 H Pulse Oximetry 95 97 96 Oxygen Delivery Nasal Cannula Room Air Oxygen Flow Rate 1 Fraction of Inspired Oxygen 01/29/25 13:22 01/29/25 13:52 01/29/25 14:52 Temperature 36.6 C 36.5 C 36.4 C Pulse Rate 70 71 72 Respiratory Rate 18 18 18 Blood Pressure 136/73 122/63 120/58 L Pulse Oximetry 95 94 98 Oxygen Delivery Oxygen Flow Rate Fraction of Inspired Oxygen Intake/Output Intake/Output: Intake & Output 01/26/25 01/27/25 01/28/25 01/29/25 23:59 23:59 23:59 23:59 Intake Total 600 3300 Output Total 300 Balance 600 3000 Meds/Results Medications: Active Medications Generic Name Dose Route Start Last Admin Trade Name Freq PRN Reason Stop Dose Admin Hydrocodone Bitart/Acetaminophen 1 tab 01/29/25 13:07 Hydrocodone/Acetaminophen (*Crx) 5-325 Mg Tablet PO Q4H PRN Pain Rated 4-6 Hydrocodone Bitart/Acetaminophen 1 tab 01/29/25 13:07 Hydrocodone/Acetaminophen (*Crx) 7.5-325 Mg Tablet PO Q4H PRN Pain Rated 7-10 Atorvastatin Calcium 10 mg 01/29/25 09:00 01/29/25 12:19 Atorvastatin 10 Mg Tablet PO 10 mg DAILY LARRY Administration Dextrose 12.5 gm 01/28/25 15:35 Dextrose 50% 25 Gm/50 Ml Syringe IV PUSH PRN PRN Hypoglycemia Protocol Enoxaparin Sodium 40 mg 01/30/25 09:00 Enoxaparin 40 Mg/0.4 Ml Syringe SUB-Q DAILY LARRY Fentanyl Citrate 25 mcg 01/29/25 09:14 01/29/25 11:50 Fentanyl Citrate Inj (*Crx) 100 Mcg/2 Ml Vial IV PUSH 25 mcg Q2M PRN Administration Pain Glucagon 1 mg 01/28/25 15:35 Glucagon For Inj 1 Mg Vial IM PRN PRN Hypoglycemia Protocol Glucose 15 gm 01/28/25 15:35 Glucose Oral Gel 15 Gm Of Glucse In 37.5 Gm Tube PO PRN PRN Hypoglycemia Protocol Hydrochlorothiazide 12.5 mg 01/29/25 09:00 01/29/25 12:19 Hydrochlorothiazide 12.5 Mg Capsule PO 12.5 mg QAM LARRY Administration Dextrose 1,000 mls @ 100 mls/hr 01/28/25 15:35 Dextrose 5% 1,000 Ml IVPB PRN PRN Hypoglycemia Protocol Ceftriaxone Sodium 1 gm in 50 mls @ 100 mls/hr 01/29/25 16:00 01/29/25 16:45 Rocephin 1 Gm/Ns 50 Ml IVPB 100 mls/hr Q24H LARRY Administration Lactated Ringer's 1,000 mls @ 30 mls/hr 01/29/25 09:15 01/29/25 09:23 Lr - Lactated Ringers Iv IV CONT Infused .Q24H LARRY Infusion Lactated Ringer's 1,000 mls @ 30 mls/hr 01/29/25 09:15 01/29/25 11:56 Lr - Lactated Ringers Iv IV CONT Infused .Q24H LARRY Infusion Lactated Ringer's 1,000 mls @ 100 mls/hr 01/29/25 13:07 01/29/25 15:05 Lr - Lactated Ringers Iv IV CONT 01/29/25 23:06 100 mls/hr .Q10H ONE Administration Metronidazole 500 mg in 100 mls @ 100 mls/hr 01/29/25 18:00 01/29/25 17:47 Flagyl 500 Mg/Iso Soln 100 Ml IVPB 100 mls/hr Q6H LARRY Administration Ibuprofen 600 mg 01/29/25 13:07 Ibuprofen 600 Mg Tablet PO Q6H PRN Pain Rated 1-3 Insulin Aspart 2 - 5 units 01/28/25 18:00 01/29/25 12:30 Insulin Aspart (*Bkc) 100 Units/Ml SUB-Q Not Given Q6HR [facility] Protocol Levothyroxine Sodium 75 mcg 01/29/25 06:30 01/29/25 06:17 Levothyroxine Sodium 75 Mcg Tablet BY MOUTH Not Given DAILY@0630 [facility] Lisinopril 20 mg 01/29/25 09:00 01/29/25 12:19 Lisinopril 20 Mg Tablet PO 20 mg QAM [facility] Administration Loratadine 10 mg 01/29/25 09:00 01/29/25 12:19 Loratadine 10 Mg Tablet PO 10 mg DAILY [facility] Administration Morphine Sulfate 2 mg 01/29/25 13:07 Morphine Sulfate (*Crx) 2 Mg/Ml Inj IV PUSH Q2H PRN Breakthrough Pain Rated 4-6 or NPO Morphine Sulfate 4 mg 01/29/25 13:07 Morphine Sulfate (*Crx) 4 Mg/Ml Inj IV PUSH Q2H PRN Breakthrough Pain Rated 7-10 or NPO Naloxone HCl 0.1 mg 01/29/25 13:07 Naloxone Hcl 0.4 Mg/Ml Vial IV PUSH Q2M PRN Opiate Reversal Ondansetron HCl 4 mg 01/28/25 15:35 01/28/25 18:09 Ondansetron Inj 4 Mg/2 Ml Vial IV PUSH 4 mg Q6H PRN Administration Nausea And Vomiting Ondansetron HCl 4 mg 01/29/25 09:14 Ondansetron Inj 4 Mg/2 Ml Vial IV PUSH ONCE PRN Nausea Ondansetron HCl 4 mg 01/29/25 13:07 Ondansetron Inj 4 Mg/2 Ml Vial IV PUSH Q4H PRN Nausea And Vomiting Oxycodone HCl 5 mg 01/29/25 09:14 Oxycodone Hcl (*Crx) 5 Mg Tab Ir PO ONCE PRN Pain Radiology Results: ITS Impressions Abdomen/Pelvis CT 01/28/25 15:02 IMPRESSION: Mild esophagitis/gastritis. Severe acute appendicitis, with evidence of appendiceal wall breakdown. No current evidence of perforation or abscess. Labs Labs: Laboratory Results - last 24 hr 01/28/25 01/29/25 01/29/25 23:59 05:24 06:04 WBC 8.0 RBC 3.56 L Hgb 11.8 L Hct 36.5 L MCV 102.5 H MCH 33.1 MCHC 32.3 RDW 12.5 Plt Count 173 MPV 10.1 Immature Gran % (Auto) 0.4 Neut % (Auto) 68.8 Lymph % (Auto) 16.4 L [place] % (Auto) 11.9 H Eos % (Auto) 2.0 Baso % (Auto) 0.5 Lymph # (Auto) 1.31 [place] # (Auto) 1.0 H Eos # (Auto) 0.2 Baso # (Auto) 0.0 Abs Immat Gran (auto) 0.03 Absolute Neuts (auto) 5.5 Absolute Nucleated RBC 0.000 Nucleated RBC % 0.0 Sodium 136 L Potassium 3.7 Chloride 104 Carbon Dioxide 24 Anion Gap 8 BUN 18 H D Creatinine 0.64 L Estim Creat Clear Calc 74 Estimated GFR > 60 Glucose 121 H POC Capillary Glucose 116 H 121 H Calcium 8.4 Total Bilirubin 1.0 AST 48 H ALT 106 H Alkaline Phosphatase 136 H Total Protein 6.0 L Albumin 3.1 L 01/29/25 01/29/25 09:12 10:33 WBC RBC Hgb Hct MCV MCH MCHC RDW Plt Count MPV Immature Gran % (Auto) Neut % (Auto) Lymph % (Auto) [place] % (Auto) Eos % (Auto) Baso % (Auto) Lymph # (Auto) [place] # (Auto) Eos # (Auto) Baso # (Auto) Abs Immat Gran (auto) Absolute Neuts (auto) Absolute Nucleated RBC Nucleated RBC % Sodium Potassium Chloride Carbon Dioxide Anion Gap BUN Creatinine Estim Creat Clear Calc Estimated GFR Glucose POC Capillary Glucose 134 H 124 H Calcium Total Bilirubin AST ALT Alkaline Phosphatase Total Protein Albumin Quality VTE Prophylaxis VTE prophylaxis: mechanical ordered
[2025-01-29] MEDS: ACETAMINOPHEN 500 MG TABLET 1000 MG PO (20:35)
[2025-01-30] MEDS: metroNIDAZOLE 500 MG/ISO 100ML 500 MG/100 ML BAG 100 MG IVPB ×3 (00:51→11:52)
[2025-01-30 01:10] VITALS: BP 107/58; PULSE 67; RESP 16; TEMP 37.2; O2SAT 95
[2025-01-30] MEDS: ACETAMINOPHEN 500 MG TABLET 1000 MG PO ×2 (04:13→12:38)
[2025-01-30 05:52] VITALS: BP 102/57; PULSE 63; RESP 16; TEMP 36.9; O2SAT 95
[2025-01-30 05:54] LABS: Hematocrit 32.8 % (37.0-47.0); Hemoglobin 10.7 g/dL (12.0-15.0); Mean Corpuscular HGB Conc 32.6 g/dl (32-36); Mean Corpuscular Hemoglobin 32.6 pg (26-34); Platelet Count Result 173 k/mm3 (150-375); Red Blood Count 3.28 M/mm3 (4.2-5.4); Red Cell Distribution Width 12.3 % (11.5-14.5); White Blood Count 6.9 K/mm3 (4.5-10.0)
[2025-01-30 06:12] LABS: Alanine Aminotransferase 86 U/L (6-35); Albumin Level 2.8 g/dL (3.5-5.1); Alkaline Phosphatase 154 U/L (38-126); Anion Gap 10 mmol/L (4-12); Aspartate Amino Transferase 42 U/L (14-36); Bilirubin,Total 0.9 mg/dL (0.2-1.3); Blood Urea Nitrogen 22 mg/dL (7-17); Calcium 7.9 mg/dL (8.4-10.2); Carbon Dioxide 22 mmol/L (22-30); Chloride 103 mmol/L (98-107); Estimated CRCL calculation 50 ml/min; Estimated Glomerular Filt Rate 55; Glucose 190 mg/dL (65-110); Magnesium 1.3 mg/dL (1.6-2.3); Potassium 3.7 mmol/L (3.4-5.0); Sodium 135 mmol/L (137-145)
[2025-01-30] MEDS: LORATADINE 10 MG TABLET PO (08:18)
[2025-01-30] MEDS: ATORVASTATIN 10 MG TABLET PO (08:18)
[2025-01-30] MEDS: ENOXAPARIN 40 MG/0.4 ML SYRINGE SUB-Q (08:24)
[2025-01-30 08:54] VITALS: BP 100/50; PULSE 58; RESP 16; TEMP 36.1; O2SAT 97
[2025-01-30] MEDS: MAGNESIUM SULF 2 GM/WATER 50ML 2 GM/50 ML BAG IVPB (09:57)
[2025-01-30] MEDS: SACCHAROMYCES BOULARDII 250 MG CAPSULE PO (09:57)
[2025-01-30 11:57] VITALS: BP 116/72; PULSE 62; RESP 14; TEMP 36.4; O2SAT 98
--- NOTE | 2025-01-30 14:11 | WPDANESPN ---
Anes - Prog Note Post-Op Date/Time: 01/30/25 14:11 Cardiovascular status: normal Respiratory status: normal Airway patency: baseline Mental status: baseline Vital Signs: Last Vital Signs Temp 36.4 C 01/30/25 11:57 Pulse 62 01/30/25 11:57 Resp 14 01/30/25 11:57 BP 116/72 01/30/25 11:57 Pulse Ox 98 01/30/25 11:57 O2 Del Method Room Air 01/30/25 08:15 O2 Flow Rate 1 01/29/25 11:40 FiO2 21 01/29/25 20:00 Pain Score (VAS): 2 I/O: Intake & Output 01/29/25 01/30/25 01/30/25 23:59 07:59 15:59 Intake Total 340 500 530 Balance 340 500 530 Laboratory Tests 01/30/25 05:18 01/30/25 05:18 01/30/25 05:18 WBC 6.9 RBC 3.28 L Hgb 10.7 L Hct 32.8 L MCV 100.0 MCH 32.6 MCHC 32.6 RDW 12.3 Plt Count 173 MPV 10.0 Sodium 135 L Potassium 3.7 Chloride 103 Carbon Dioxide 22 Anion Gap 10 BUN 22 H Creatinine 0.98 Estim Creat Clear Calc 50 Estimated GFR 55 L Glucose 190 H Calcium 7.9 L Magnesium 1.3 L Total Bilirubin 0.9 AST 42 H ALT 86 H Alkaline Phosphatase 154 H Total Protein 5.0 L Albumin 2.8 L Microbiology 01/28/25 13:50 Urine Clean Catch Urine Culture - Final Patient Feedback: Patient satisfied with anesthetic care.
--- NOTE | 2025-01-30 14:39 | P.PNGS_ITS ---
Progress Note: A&P Assessment and Plan (1) Acute appendicitis: Qualifiers: Acute appendicitis type: with localized peritonitis Appendicitis abscess presence: with abscess Appendicitis gangrene presence: with gangrene Appendicitis perforation presence: with perforation Qualified Code(s): K35.33 - Acute appendicitis with perforation, localized peritonitis, and gangrene, with abscess Code(s): K35.80 - Unspecified acute appendicitis Status: Acute Assessment and Plan: * Doing well on POD#1. OK to discharge home today. Sent prescription for levaquin and flagyl x 10 days. F/u in office in 2 weeks. Subjective Subjective Date/Time Seen: 01/30/25 14:39 Interval history: Doing well. Pain controlled with just acetaminophen. Tolerating regular diet. Some diarrhea. No nausea/vomiting. Exam GI: Inspection: non-distended and incision (intact with glue, mild bruising) GI Palp: Yes Soft to palpation, Yes Tenderness to palpation present (GI) (incisional), No Guarding due to palpation present (GI) and No Rebound tenderness present Objective Data Vital Signs Vital Signs: Vital Signs - 24 hr 01/29/25 14:52 01/29/25 17:52 01/29/25 20:00 Temperature 97.6 F 98.6 F Pulse Rate 72 80 80 Respiratory Rate 18 18 18 Blood Pressure 120/58 L 137/62 Pulse Oximetry 98 92 92 Oxygen Delivery Room Air Fraction of Inspired Oxygen 01/29/25 21:18 01/29/25 23:45 01/30/25 01:10 Temperature 99.5 F 100.0 F H 99.0 F Pulse Rate 82 67 Respiratory Rate 16 16 Blood Pressure 127/64 107/58 L Pulse Oximetry 93 95 Oxygen Delivery Fraction of Inspired Oxygen 01/30/25 05:52 01/30/25 08:15 01/30/25 08:54 Temperature 98.4 F 97.0 F L Pulse Rate 63 58 L Respiratory Rate 16 16 Blood Pressure 102/57 L 100/50 L Pulse Oximetry 95 97 Oxygen Delivery Room Air Fraction of Inspired Oxygen 01/30/25 11:57 Temperature 97.6 F Pulse Rate 62 Respiratory Rate 14 Blood Pressure 116/72 Pulse Oximetry 98 Oxygen Delivery Fraction of Inspired Oxygen Intake/Output Intake/Output: Intake & Output 04/19/25 04/20/25 04/21/25 04/22/25 23:59 23:59 23:59 23:59 Intake Total 600 3640 1030 Output Total 300 Balance 600 3340 1030 Meds/Results Medications: Active Medications Generic Name Dose Route Start Last Admin Trade Name Freq PRN Reason Stop Dose Admin Acetaminophen 1,000 mg 01/29/25 18:13 01/30/25 12:38 Acetaminophen 500 Mg Tablet PO 1,000 mg Q6H PRN Administration Mild Pain (1-3) or Fever Hydrocodone Bitart/Acetaminophen 1 tab 01/29/25 13:07 Hydrocodone/Acetaminophen (*Crx) 5-325 Mg Tablet PO Q4H PRN Pain Rated 4-6 Hydrocodone Bitart/Acetaminophen 1 tab 01/29/25 13:07 Hydrocodone/Acetaminophen (*Crx) 7.5-325 Mg Tablet PO Q4H PRN Pain Rated 7-10 Atorvastatin Calcium 10 mg 01/29/25 09:00 01/30/25 08:18 Atorvastatin 10 Mg Tablet PO 10 mg DAILY LARRY Administration Dextrose 12.5 gm 01/28/25 15:35 Dextrose 50% 25 Gm/50 Ml Syringe IV PUSH PRN PRN Hypoglycemia Protocol Enoxaparin Sodium 40 mg 01/30/25 09:00 01/30/25 08:24 Enoxaparin 40 Mg/0.4 Ml Syringe SUB-Q 40 mg DAILY LARRY Administration Fentanyl Citrate 25 mcg 01/29/25 09:14 01/29/25 11:50 Fentanyl Citrate Inj (*Crx) 100 Mcg/2 Ml Vial IV PUSH 25 mcg Q2M PRN Administration Pain Glucagon 1 mg 01/28/25 15:35 Glucagon For Inj 1 Mg Vial IM PRN PRN Hypoglycemia Protocol Glucose 15 gm 01/28/25 15:35 Glucose Oral Gel 15 Gm Of Glucse In 37.5 Gm Tube PO PRN PRN Hypoglycemia Protocol Hydrochlorothiazide 12.5 mg 01/29/25 09:00 01/30/25 08:18 Hydrochlorothiazide 12.5 Mg Capsule PO Not Given QAM LARRY Dextrose 1,000 mls @ 100 mls/hr 01/28/25 15:35 Dextrose 5% 1,000 Ml IVPB PRN PRN Hypoglycemia Protocol Ceftriaxone Sodium 1 gm in 50 mls @ 100 mls/hr 01/29/25 16:00 01/29/25 16:45 Rocephin 1 Gm/Ns 50 Ml IVPB 100 mls/hr Q24H LARRY Administration Metronidazole 500 mg in 100 mls @ 100 mls/hr 01/29/25 18:00 01/30/25 11:52 Flagyl 500 Mg/Iso Soln 100 Ml IVPB 100 mls/hr Q6H LARRY Administration Ibuprofen 600 mg 01/29/25 13:07 Ibuprofen 600 Mg Tablet PO Q6H PRN Pain Rated 1-3 Levothyroxine Sodium 75 mcg 01/29/25 06:30 01/30/25 11:52 Levothyroxine Sodium 75 Mcg Tablet BY MOUTH Not Given DAILY@0630 [facility] Lisinopril 20 mg 01/29/25 09:00 01/30/25 08:18 Lisinopril 20 Mg Tablet PO Not Given QAM [facility] Loperamide HCl 2 mg 01/30/25 09:39 Loperamide Hcl 2 Mg Capsule PO PRN PRN Diarrhea Loratadine 10 mg 01/29/25 09:00 01/30/25 08:18 Loratadine 10 Mg Tablet PO 10 mg DAILY [facility] Administration Morphine Sulfate 2 mg 01/29/25 13:07 Morphine Sulfate (*Crx) 2 Mg/Ml Inj IV PUSH Q2H PRN Breakthrough Pain Rated 4-6 or NPO Morphine Sulfate 4 mg 01/29/25 13:07 Morphine Sulfate (*Crx) 4 Mg/Ml Inj IV PUSH Q2H PRN Breakthrough Pain Rated 7-10 or NPO Naloxone HCl 0.1 mg 01/29/25 13:07 Naloxone Hcl 0.4 Mg/Ml Vial IV PUSH Q2M PRN Opiate Reversal Ondansetron HCl 4 mg 01/28/25 15:35 01/28/25 18:09 Ondansetron Inj 4 Mg/2 Ml Vial IV PUSH 4 mg Q6H PRN Administration Nausea And Vomiting Ondansetron HCl 4 mg 01/29/25 09:14 Ondansetron Inj 4 Mg/2 Ml Vial IV PUSH ONCE PRN Nausea Ondansetron HCl 4 mg 01/29/25 13:07 Ondansetron Inj 4 Mg/2 Ml Vial IV PUSH Q4H PRN Nausea And Vomiting Oxycodone HCl 5 mg 01/29/25 09:14 Oxycodone Hcl (*Crx) 5 Mg Tab Ir PO ONCE PRN Pain Saccharomyces Boulardii 250 mg 01/30/25 09:40 01/30/25 09:57 Saccharomyces Boulardii 250 Mg Capsule PO 250 mg BID LARRY Administration Radiology Results: ITS Impressions Abdomen/Pelvis CT 01/28/25 15:02 IMPRESSION: Mild esophagitis/gastritis. Severe acute appendicitis, with evidence of appendiceal wall breakdown. No current evidence of perforation or abscess. Labs Labs: Laboratory Results - last 24 hr 01/30/25 05:18 WBC 6.9 RBC 3.28 L Hgb 10.7 L Hct 32.8 L MCV 100.0 MCH 32.6 MCHC 32.6 RDW 12.3 Plt Count 173 MPV 10.0 Sodium 135 L Potassium 3.7 Chloride 103 Carbon Dioxide 22 Anion Gap 10 BUN 22 H Creatinine 0.98 Estim Creat Clear Calc 50 Estimated GFR 55 L Glucose 190 H Calcium 7.9 L Magnesium 1.3 L Total Bilirubin 0.9 AST 42 H ALT 86 H Alkaline Phosphatase 154 H Total Protein 5.0 L Albumin 2.8 L
[2025-01-30 15:10] VITALS: BP 126/67; PULSE 63; RESP 16; TEMP 36.1; O2SAT 98
--- NOTE | 2025-01-30 15:10 | P.DS_ITS ---
DS: Admitting Diagnosis Discharge Date 01/30/25 Admitting Diagnosis Acute abdominal pain DS: Discharge Diagnosis Discharge Diagnosis (1) Acute appendicitis: Qualifiers: Acute appendicitis type: with localized peritonitis Appendicitis abscess presence: with abscess Appendicitis gangrene presence: with gangrene Appendicitis perforation presence: with perforation Qualified Code(s): K35.33 - Acute appendicitis with perforation, localized peritonitis, and gangrene, with abscess Code(s): K35.80 - Unspecified acute appendicitis Status: Acute Assessment and Plan: Surgery consulted Plan for OR tomorrow NPO IVF for hydration IV Rocephin and Flagyl (2) Essential (primary) hypertension: Code(s): I10 - Essential (primary) hypertension Status: Acute Assessment and Plan: Continue home hydrochlorothiazide and lisinopril (3) HLD (hyperlipidemia): Code(s): E78.5 - Hyperlipidemia, unspecified Status: Acute Assessment and Plan: Continue Lipitor (4) Hypothyroidism (acquired): Code(s): E03.9 - Hypothyroidism, unspecified Status: Acute Assessment and Plan: Continue levothyroxine (5) Diabetes mellitus: Qualifiers: Diabetes mellitus type: type 2 Diabetes mellitus long-term insulin use: without long-term use Diabetes mellitus complication status: without complication Qualified Code(s): E11.9 - Type 2 diabetes mellitus without complications Code(s): E11.9 - Type 2 diabetes mellitus without complications Status: Acute Assessment and Plan: Patient will need a diabetic diet after surgery Accu-Cheks q.6 (6) UTI (urinary tract infection): Code(s): N39.0 - Urinary tract infection, site not specified Status: Acute Assessment and Plan: Already on Rocephin Plan patient was seen by surgery service and was taken to OR had laparoscopic appendectomy and laparoscopic drainage of intra-abdominal abscess, patient stats feels much better pain has improved, patient is clinically stable will monitor and plan. DS: Summary Hospital Course Hospital Course: patient was seen by surgery service and was taken to OR had laparoscopic appendectomy and laparoscopic drainage of intra-abdominal abscess, patient stats feels much better pain has improved, patient is able to tolerate her diet, patient is seen by surgery service patient is clinically stable will discharge patient today. Time Spent with Patient Time attestation: Total time spent providing and/or coordinating discharge services: DS: Data Data Completed and Pending Completed studies during hospitalization: Pending at discharge 01/29/25 10:04 Surgical [PTH] Routine Labs on day of discharge: Labs from last 24 hours 01/30/25 05:18 WBC 6.9 RBC 3.28 L Hgb 10.7 L Hct 32.8 L MCV 100.0 MCH 32.6 MCHC 32.6 RDW 12.3 Plt Count 173 MPV 10.0 Sodium 135 L Potassium 3.7 Chloride 103 Carbon Dioxide 22 Anion Gap 10 BUN 22 H Creatinine 0.98 Estim Creat Clear Calc 50 Estimated GFR 55 L Glucose 190 H Calcium 7.9 L Magnesium 1.3 L Total Bilirubin 0.9 AST 42 H ALT 86 H Alkaline Phosphatase 154 H Total Protein 5.0 L Albumin 2.8 L Discharge Plan Discharge Attending physician on discharge: Usama Rome Consulting providers: Neri Montalvo Discharging Clinician: uAdra Corrales Patient Disposition: Home Activity: other - see discharge instructions Diet: other - see discharge instructions Wound Care Instructions: other - see discharge instructions Discharge Instructions: DISCHARGE INSTRUCTION SHEET FOR HERNIA, GALLBLADDER AND APPENDIX SURGERIES DR. MONTALVO PATIENT TO TAKE HOME 1. May shower, no soaking in bath x 2weeks. 2. Call office for: * Wound increasingly painful or bleeding * Vomiting * Fever of greater than 101 degrees 3. If no bowel movement for three days, take 1 oz. (30 ml) Milk of Magnesia or MiraLax 17g 1 to 2 times daily. 4. No heavy lifting > 10-15 pounds x 2 weeks for laparoscopic cholecystectomy or appendectomy. 5. No driving for 3 days or while taking narcotic pain medications. 6. Ice to surgical site for 48 hours (30 min on, then 30 min off). 7. Up walking 10-30 minutes three times per day. 8. Resume previous home medications. 9. Follow-up 10-14 days in office for wound check or as previously scheduled. ([phone]) 10. Oral pain medications prescription to be sent to pharmacy. Take Tylenol 500mg every 6 hours and Ibuprofen 600mg every 6 hours for the first 2 days, then as needed. 11. NUTRITION: Start out by drinking fluids and increase your diet as tolerated. If you experience nausea, try dry toast, crackers, and 7-UP. If nausea or vomiting persists, contact your surgeon?s office. 12. Gallbladders-Low Fat Diet for 2 weeks (send care note of low fat diet) 13. Inguinal Hernias-wear scrotal support for 48 hours 14. Abdominal Hernias-if sent home with abdominal binder, wear for the first 2 weeks (may remove to shower or at night to sleep). patient to follow discharge care instruction from her surgeon and follow up as scheduled, patient to follow up with her primary care provider as soon as possible. patient is instructed if symptoms redevelop to go to nearest ER. Revised February 2019 Patient Instructions: Antibiotic Form Patient Language: Indonesian Stand Alone Forms: General Discharge Information Follow-up/Referrals: Neri Montalvo DO [Physician] - 2 Weeks Discharge Medications: New metronidazole 500 mg tablet 500 mg PO Q8H 10 Days Qty: 30 0RF levofloxacin 750 mg tablet 750 mg PO DAILY 10 Days Qty: 10 0RF Continued loratadine [Claritin] 10 mg tablet 10 mg PO DAILY calcium carbonate-vit D3-min 600 mg calcium- 400 unit tablet 1 tablet PO DAILY flaxseed oil 1,000 mg capsule 1,000 mg PO DAILY Rx Instructions: administer with a meal cranberry 500 mg capsule 500 mg PO DAILY Rx Instructions: administer with meals atorvastatin 10 mg tablet See Rx Instructions .ROUTE .COMPLEX Qty: 90 2RF Dose Instruction: Take 1 Tablet (10 mg) by mouth daily. Rx Instructions: Take 1 Tablet (10 mg) by mouth daily. levothyroxine 75 mcg tablet See Rx Instructions .ROUTE .COMPLEX Qty: 90 2RF Dose Instruction: Take 1 Tablet (75 mcg) by mouth daily. Rx Instructions: Take 1 Tablet (75 mcg) by mouth daily. levomefolate-algal oil [Deplin (algal oil)] 15-90.314 mg capsule See Rx Instructions .ROUTE .COMPLEX Qty: 90 2RF Dose Instruction: TAKE 1 CAPSULE BY MOUTH DAILY Rx Instructions: TAKE 1 CAPSULE BY MOUTH DAILY lisinopril-hydrochlorothiazide 20-12.5 mg tablet See Rx Instructions .ROUTE .COMPLEX Qty: 90 2RF Dose Instruction: TAKE ONE TABLET BY MOUTH ONCE DAILY Rx Instructions: TAKE ONE TABLET BY MOUTH ONCE DAILY Date of admission: 01/28/25 15:38 Primary Care Provider: Agustin Montgomery Admitting Provider: Usama Rome Attending physician on admission: Usama Rome Condition: Improved
== END 2025-01-30 15:42 | disposition home or self-care (01) | DRG 398 ==
LOC: ANHED 15:29 → ANH3MEDSUR 15:41
PROVIDERS: Emergency Medicine; Internal Medicine; Nurse Practitioner Gerontology; Admitting Provider Surgery; Emergency Provider Emergency Medicine; PCP Emergency Medicine; Visit Provider Family Medicine
PROC: 0DTJ4ZZ Resection of Appendix, Percutaneous Endoscopic Approach (ICD-10-PCS; CPT 44970; principal; 2025-01-29 10:30)
DX: K35.33 Acute appendicitis with perforation, localized peritonitis, and gangrene, with abscess (principal); N39.0 Urinary tract infection, site not specified; E03.9 Hypothyroidism, unspecified; E78.5 Hyperlipidemia, unspecified; E11.9 Type 2 diabetes mellitus without complications; I10 Essential (primary) hypertension; R91.8 Other nonspecific abnormal finding of lung field; Z88.0 Allergy status to penicillin; Z20.822 Contact with and (suspected) exposure to COVID-19
CPT/HCPCS: 36415; 74177; 80053; 81001; 82948; 83690; 83735; 85025; 85027; 87086; 87637; 88304; 96374; 99285; A9270; J0696; J1100; J1171; J1650; J1836; J2003; J2250; J2270; J2405; J2704; J3010; J3475; J7030; J7120; Q9967

== ENCOUNTER 2025-05-24 07:22 | Outpatient (CLI) | payer MEDICARE, SELFPAY ==
--- OUTSIDE RECORDS SUMMARY | 2025-05-24 07:26 | XMS_ITS | Clinical Summary ---
Author Organization [facility] Address [address] [place] [address] Care Team Providers Care Co Pilot Name Role Phone Agustin Montgomery MD Primary Care Provider [phone] Source Comments [facility] and Associated Physician Practices is amultiple site organization consisting of ambulatory clinics and hospital sitesin [place], [place], [place] and [place]. This disclosure is being madepursuant to the Care Everywhere program and may not contain all information available regarding this patient. 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 Gender Identity Not on file Sexual Orientation Not on file Plan of Treatment Health Maintenance Due Date Last Done Comments BONE DENSITY TESTING 1950 MEDICARE AWV 12 MONTHS 1950 HEPATITIS C SCREENING 04/16/1967 DTAP/TDAP/TD VACCINES (1 - Tdap) 1968 PNEUMOCOCCAL VACCINE 50+ (1 of 1 - PCV) 1999 ZOSTER VACCINE (1 of 2) 1999 Respiratory Syncytial Virus (RSV) Vaccine Pt: or over 60 yrs (1 - 1-dose 75+ series) 2024 COVID-19 VACCINE (1 - 2023-2 5 season) 2024 DEPRESSION SCREENING 10/11/2024 INFLUENZA VACCINE (#1) 2025 08/24/2017 HEPATITIS B VACCINE Aged Out No longe [...] age to complete this topic Insurance MEDICARE ANTHEM ANTHEM SELF PAY NO INSURANCE Member Subscriber Plan / Payer (Ef fective for All Dates) Name:Chava Craig Member ID:Not on file Relation to Subscriber:Not on file Name:CHAVA CRAIG Subscriber ID:Not on file (Home) Address: [address] [place] [address] [place] [address] Payer ID:Not on file Group ID:Not on file Type:Self Pay Address: [place], [place] Care Teams Co Pilot Relationship Specialty Start Date End Date Agustin Montgomery MD [address] [place] [id number] PCP - General Internal Medicine 08/24/17
--- OUTSIDE RECORDS SUMMARY | 2025-05-24 07:26 | XMS_ITS | Clinical Summary ---
Author Organization [facility] Address [address] [place] [id number] Care Team Providers Care Telephone Lineman Name Role Phone None, Provider Primary Care [...] Health Maintenance Due Date Last Done Comments Hepatitis C 1967 DTaP, Tdap and Td Vaccines ( 1 - Tdap) 1968 Pneumococcal Vaccine: 50+ Ye ars (1 of 1 - PCV) 1999 Zoster Vaccines (1 of 2) 1999 Annual Medicare Wellness Visit 2014 Dexa Scan (General) 2014 RSV Immunization or 60+ Years (1 - 1-dose 75+ series) 2024 COVID-19 Vaccine (2023-2 5 season) 2024 Meningococcal B Vaccine Aged Out No l onger eligible based on patient's age to complete this topic Meningococcal Vaccine Aged Out No didier caryn eligible based on patient's age to complete this topic RSV Immunizations Under 20 Months Aged Out No longer eligible based on patient's age to complete this topic Insurance MEDICARE [facility] Care Teams Telephone Lineman Relationship Specialty Start Date End Date None, Provider, PCP - General 11/08/18
--- OUTSIDE RECORDS SUMMARY | 2025-05-24 07:26 | XMS_ITS | Clinical Summary ---
Author Organization [facility] Address [address] Attn: Epic Prelude ADT [place] [id number] Care Team Providers Care Outpatient Interviewing Clerk Name Role Phone Unavailable Primary Care Provider Unavailabl e Allergies Active Allergy Reactions Criticality Noted Date Comments Sulfamethoxazole-Trimethoprim Hives High 2023 Medications bacitracin zinc 500 unit/gram Ointment Apply to the affected area three times daily 14 Gram 2 Active peg 3350-electrolyt es (GaviLyte-G) 236-22.74-6.74 -5.86 gram Recon Soln TAKE DIRECTED BY PHYSICIAN. 4000 mL 11/21/2022 12:40 PM MACHINE I COREMAKER 3 Active inhalational spacing device ([facility]) Spacer use as directed with [...] 3 Active fluticasone propionate (FLONASE) 50 mcg/spray [place], Suspension nasal inhaler Administer 2 sprays in [...] THRU 5. 6 Tablet 11/30/2023 2:03 PM MACHINE I COREMAKER 4 Active methylPREDNISol one (MEDROL DOSPACK) 4 mg Tablets, Dose Pack TAKE DIRECTED ON PACKAGE. 21 Each 11/30/2023 2:03 PM MACHINE I COREMAKER 4 Active bacitracin zinc 500 unit/gram Ointment Apply topically three times daily. 14 Gram 2 4 Active lisinopril-hydr oCHLOROthiazide (ZESTORETIC) 20-12.5 mg tablet TAKE ONE TABLET BY MOUTH ONCE DAILY 90 Tablet 2 05/03/2025 11:42 AM CDT 5 Active atorvastatin (LIPITOR) 10 mg tablet Take 1 Tablet (10 mg) by mouth daily. 90 Tablet 2 05/03/2025 11:42 AM CDT 5 Active levothyroxine 75 mcg tablet Take 1 Tablet (75 mcg) by mouth daily. 90 Tablet 2 05/09/2025 10:24 AM CDT 5 Active Immunizations Immunization Administration Dates Next [...] Health Maintenance Due Date Last Done Comments PNEUMOCOCCAL VACCINE 50+ YEA RS (1 of 1 - PCV) 1999 ZOSTER VACCINE (1 of 2) 1999 OSTEOPOROSIS SCREENING 2014 INFLUENZA VACCINE (#1) 2025 08/01/2024, 2022 DTAP/TDAP/TD VACCINES (2 - Td or Tdap) 07/01/2032 RSV VACCINE (60+ or ) Completed 10/28/2023 Insurance RX [employer]WIN DATA Medicare Part B RX [employer] (INTERNAL) [facility] RX [employer] RX Member Subscriber Plan / Payer (Ef fective for All Dates) Name:Chava Craig Relation to Subscriber:Self Name:Chava Craig Payer ID:Not on file Group ID:[id number] Type:RX Commercial Address: [address]
[2025-05-24 08:38] LABS: Hemoglobin A1C 5.6 % (<5.7)
[2025-05-24 08:47] LABS: Alanine Aminotransferase 36 U/L (6-35); Albumin Level 4.1 g/dL (3.5-5.1); Alkaline Phosphatase 104 U/L (38-126); Anion Gap 6 mmol/L (4-12); Aspartate Amino Transferase 34 U/L (14-36); Bilirubin,Total 0.8 mg/dL (0.2-1.3); Blood Urea Nitrogen 30 mg/dL (7-17); Calcium 9.2 mg/dL (8.4-10.2); Carbon Dioxide 24 mmol/L (22-30); Chloride 107 mmol/L (98-107); Cholesterol 191 mg/dL (0-200); Estimated Glomerular Filt Rate > 60; Glucose 107 mg/dL (65-110); HDL Direct 109 mg/dL; Potassium 4.1 mmol/L (3.4-5.0); Sodium 137 mmol/L (137-145); Total Protein 6.7 g/dL (6.3-8.2); Triglycerides 89 mg/dL (<150)
[2025-05-24 09:23] LABS: Thyroid Stimulating Hormone 2.930 uIU/mL (0.465-4.680)
== END 2025-05-24 07:23 | disposition home or self-care (01) ==
LOC: ANHLAB 07:24
PROVIDERS: PCP Emergency Medicine; Visit Provider Emergency Medicine
DX: E78.5 Hyperlipidemia, unspecified (principal); R53.83 Other fatigue; E55.9 Vitamin D deficiency, unspecified; E11.9 Type 2 diabetes mellitus without complications
CPT/HCPCS: 36415; 80053; 80061; 82306; 83036; 84443

== ENCOUNTER 2025-08-17 07:37 | Outpatient (CLI) | payer MEDICARE, SELFPAY ==
--- NOTE | ~2025-08-17 | MM_ITS ---
EXAMINATION: MM screening jan BI w richard HISTORY: Screening TECHNIQUE: Craniocaudal and mediolateral oblique 3-D tomosynthesis images were obtained and synthetic 2-D images were generated. CAD analysis was submitted and interpreted. COMPARISON: Comparison to multiple prior studies sequentially, with oldest reviewed study dated 03/25/2016. BREAST PARENCHYMAL COMPOSITION: Not dense: There are scattered areas of fibroglandular density. FINDINGS: There is no evidence of suspicious mass, calcification, or architectural distortion to suggest malignancy in either breast. There has been no suspicious interval change. IMPRESSION: 1. No mammographic evidence of malignancy. 2. Recommend routine screening mammography in one year. BI-RADS Category 1: Negative Reviewed, dictated and finalized at location O. . JAVA DEVELOPER
== END 2025-08-17 07:38 | disposition home or self-care (01) ==
LOC: MICIMG 07:38
PROVIDERS: PCP Emergency Medicine; Visit Provider Emergency Medicine
DX: Z12.31 Encounter for screening mammogram for malignant neoplasm of breast (principal)
CPT/HCPCS: 77063; 77067